=== PATIENT | female | born 1975 | race Caucasian/White ===

== ENCOUNTER 2017-04-24 19:19 | Emergency (ER) | payer MEDICAID ==
[~2017-04-24] VITALS: Ht 167.6 cm; Wt 89.4 kg
[~2017-04-24 19:19] MED LIST: BACTRIM DS 8001 TA1 PO; BUPROPION HYDR150 M1 PO; CIPRO 500MG TA500 MG PO; JUNEL PO; LORTAB 5/500 501 TAB PO; MEDROL 4MG. DOSE4 MG PO; PHENERGAN25 M3 PO; PRISTIQ100 MG PO; PYRIDIUM 200MG200 MG PO; TORADOL10 MG PO
--- OUTSIDE RECORDS SUMMARY | 2017-04-24 19:28 | External Medical Summary Rpt ---
Author Author , ERASMO Boyer RAYADONIS Address Unknown Phone [email or web address] Care Team Providers Care Avid Editor Name Role Phone Sidney Granger MD, Unavailable Unavailable [facility] Unavailable Unavailable PRACTICE L, [facility]ICE [facility] PRACT[facility] L BELINDA TREVINO Unavailable Unavailable MITA LYNN, MITA Unavailable Unavailable LYNN TOSIN TENORIO PA-C Unavailable Unavailable TOSIN COREAC ANMOL GALAN, Unavailable Unavailable BIRGIT ROSS Unavailable Unavailable GANSTMORGAN CASH, GANSTER Unavailable Unavailable CASH DARRELL GILBERT, DARRELL Unavailable Unavailable GILBERT [facility], Unavailable Unavailable [facility] HOGGE BERNARDO, HOGGE BERNARDO Unavailable Unavailable ERROL, ERROL Unavailable Unavailable STRICKLAND, STRICKLAND Unavailable Unavailable STRICKLAND KIRAN, STRICKLAND KIRAN Unavailable Unavailable [facility] Unavailable Unavailable SURGERY, [facility] Unavailable Unavailable MEDICAL, [facility], Unavailable Unavailable [facility] JOSE, JOSE Unavailable Unavailable DENNIS, DENNIS Unavailable Unavailable SOTINGEANU RUSLAN, Unavailable Unavailable SOTINGEANU RUSLAN Purpose Continuity of Care Document - 05-13-2012 through 2016 Problems Code Diagnosis DOS Provider Status [id number] ACUTE 03-13-2017 DALI SINUSITIS PHYSICIAN UNSPECIFIED PRACTICE L [id number] ENCOUNTER 06-25-2016 [facility] INITIAL FAMILY PRESCRIPTIO HEALTH CTR N INJECT CONTRACEPT Z309 ENCOUNTER 06-25-2016 [facility] FOR [facility] CONTRACEPTI HEALTH CTR VE MANAGEMENT UNS O702 THIRD 05-12-2016 [facility] DEGREE FAMILY PERINEAL HEALTH CTR LACERATION DURING DELIVERY O7581 MATERNAL 05-12-2016 [facility] EXHAUSTION FAMILY COMP LABOR HEALTH CTR & DELIVERY O76 ABNORMALITY 05-12-2016 [facility] IN FAMILY HRT RATE HEALTH CTR RHYTHM COMP L & D O9902 ANEMIA 05-12-2016 [facility] COMPLICATIN FAMILY G HEALTH CTR CHILDBIRTH [id number] SUPERVISION 04-23-2016 [facility] ELDERLY FAMILY PRIMIGRAVID HEALTH CTR A THIRD TRIMESTER R319 HEMATURIA 04-23-2016 [facility] UNSPECIFIED FAMILY HEALTH CTR Z3A38 38 WEEKS 04-23-2016 [facility] [place] GESTATION FAMILY OF HEALTH CTR Z36 ENCOUNTER 04-19-2016 [facility] [place] FOR FAMILY HEALTH CTR SCREENING OF MOTHER Z3A37 37 WEEKS 04-19-2016 [facility] [place] GESTATION FAMILY OF HEALTH CTR Z3A36 36 WEEKS 04-11-2016 [facility] [place] GESTATION FAMILY OF [facility]ALTH CTR Z23 ENCOUNTER 03-21-2016 [facility] [place] FOR FAMILY IMMUNIZATIO HEALTH CTR N Z3A33 33 WEEKS 03-21-2016 [facility] [place] GESTATION FAMILY OF HEALTH CTR Z3A31 31 WEEKS 03-07-2016 [facility] [place] GESTATION FAMILY OF HEALTH CTR [id number] ABNORMAL 02-22-2016 [facility] GLUCOSE FAMILY COMPLICATIN HEALTH CTR G Z3A29 29 WEEKS 02-22-2016 [facility] [place] GESTATION FAMILY OF HEALTH CTR N200 CALCULUS OF 02-15-2016 [facility] KIDNEY [facility]ILY [facility] CTR [id number] SUPERVISION 02-15-2016 [facility] ELD[facility]LY [facility]ILY MULTIGRAVID HEALTH CTR A THIRD TRIMESTER Z3182 ENCOUNTER 02-15-2016 [facility] FOR RH FAMILY INCOMPATIBI HEALTH CTR LITY STATUS Z3A28 28 WEEKS 02-15-2016 [facility] GESTATION FAMILY OF HEALTH CTR Z6791 UNSPECIFIED 02-15-2016 [facility] BLOOD TYPE FAMILY RH HEALTH CTR NEGATIVE N201 CALCULUS OF 02-13-2016 [facility]RETER GENERAL SURGERY K87496 SUPERVISION 02-13-2016 [facility] ELDERLY FAMILY MULTIGRAVID HEALTH CTR A SECOND TRI K30565 SUPERVISION 02-08-2016 [facility] ELD[facility]LY [facility]ILY PRIMIGRAVID HEALTH CTR A SECOND TRI [id number] OTHER SPEC 02-08-2016 [facility] [place] [facility] RELATED HEALTH CTR COND 2ND TRIMESTER R309 PAINFUL 02-08-2016 [facility] MICTURITION PHYSICIANS GROUP UNSPECIFIED Z331 02-08-2016 [facility] STATE PHYSICIANS INCIDENTAL GROUP [id number] OTHER SPEC 02-06-2016 [facility] RELATED [facility] CTR COND UNS TRIMESTER O7589 OTHER 02-06-2016 [facility] SPECIFIED REGIONAL COMPLICATIO MEDICAL NS LABOR & DELIVERY Z3A27 27 WEEKS 02-06-[address] [facility] CTR [id number] SPRAIN UNS 01-23-2016 [facility] INITIAL ENCOUNTER Z3A21 21 WEEKS 12-27-[address] [facility] CTR N390 URINARY 12-15-2015 [facility] TRACT PHYSICIANS INFECTION GROUP SITE NOT SPECIFIED 592.9 592.9 08-18-2013 [facility] NOS Allergies, Adverse Reactions, Alerts Type Drug Allergy Adverse Reaction to Substance Substance Reaction Severity Codeine NA-NAUSEA/VOMITING Unknown Medications Na ND Rx Da Fi Fi Am Da Di Ph RX Ph St me C No te ll ll ou ys ag ar # ys at rm s nt no ma ic us Or Da si cy ia de te s n re d AM 00 06 07 20 10 00 WA Ac OX 78 -1 -2 .0 00 L- ti -C 11 4- 1- 00 07 MA ve LA 85 20 20 49 RT V 22 17 17 34 87 0 62 PH 5- AR 12 MA 5 CY MG #5 TA 91 BL ET BU 00 06 07 30 30 00 WA Ac MO 59 -1 -2 .0 00 L- ti OP 13 9- 1- 00 07 MA ve IO 54 20 20 49 RT N 36 17 17 42 HC 0 69 PH L AR SR MA CY 15 0 #5 MG 91 TA BL ET ES 68 03 04 30 30 00 WA Ac CI 64 -0 -1 .0 00 L- ti TA 50 9- 4- 00 07 MA ve LO 52 20 20 46 RT MO 05 17 17 96 AM 4 60 PH AR 20 MA CY MG #5 TA 91 BL ET AZ 59 03 04 6. 5 00 WA Ac IT 76 -0 -1 00 00 L- ti HR 23 1- 4- 0 07 MA ve OM 06 20 20 47 RT YC 00 17 17 37 IN 1 34 PH AR 25 MA 0 CY MG #5 TA 91 BL ET ES 68 02 03 30 30 00 WA Ac CI 64 -0 -1 .0 00 L- ti TA 50 8- 7- 00 07 MA ve LO 52 20 20 46 RT MO 05 17 17 96 AM 4 60 PH AR 20 MA CY MG #5 TA 91 BL ET ES 00 01 02 30 30 00 WA Ac CI 09 -2 -2 .0 00 L- ti TA 35 5- 4- 00 07 MA ve LO 85 20 20 46 RT MO 00 17 17 69 AM 1 14 PH 5 AR MA MG CY TA #5 BL 91 ET SE 68 12 01 30 30 00 WA Ac RT 64 -2 -2 .0 00 L- ti RA 50 0- 0- 00 07 MA ve LI 48 20 20 45 RT NE 87 16 17 96 0 40 PH HC AR L MA 50 CY MG #5 91 TA BL ET TR 59 12 01 2. 1 00 WA Ac IA 76 -1 -2 00 00 L- ti ZO 23 9- 0- 0 04 MA ve LA 71 20 20 52 RT M 80 16 17 87 0. 4 86 PH 25 AR MA MG CY TA #5 BL 91 ET DU 57 12 01 30 30 00 WA Ac LO 23 -0 -0 .0 00 L- ti XE 70 7- 9- 00 07 MA ve TI 01 20 20 38 RT NE 83 16 17 00 0 56 PH HC AR L MA DR CY 30 #4 93 MG CA P KE 00 11 0 No TO 40 -1 RO 93 9- Lo LA 79 20 ng C 60 13 er 60 1 Ac MG ti /2 ve ML AL Immunization Name Date Rout CVX Reac Dose Comm Prov Is Faci e tion ent ider Refu lity Give sed n TDAP 06-2 115 CLAUDIA No LEWI 2-20 E S CO VACC 16 BERNARDO INE FAMI 7 LY YRS/ HEAL > IM TH CTR RHO( 05-1 BRIANNA No LEWI D) 8-20 TER S CO IMMU 16 NE FAMI GLOB LY ULIN HEAL TH LEIF CTR N FULL -DOS E IM Vital Signs 08-18-2013 11:13 Name Value Interpretat Reference Comment ion Range Body 98.2 [degF] Temperature BP 68 mm[Hg] Diastolic BP Systolic 128 mm[Hg] Heart 70 /min Rate/Pulse O2% 99 % Respiratory 18 /min Rate 08-18-2013 09:40 Name Value Interpretat Reference Comment ion Range Body 98.2 [degF] Temperature 08-18-2013 09:07 Name Value Interpretat Reference Comment ion Range BP 92 mm[Hg] Diastolic BP Systolic 138 mm[Hg] Heart 85 /min Rate/Pulse O2% 98 % Respiratory 20 /min Rate Results Labs Lab Lab Date Result Refere Interp Status Commen Order Detail nces retati t Range on Urinalysis macro (dipstick) panel in Urine (04-11-2017 12:37) Appeara CLOUDY CLEAR complet nce of 017 ed Urine 12:37 Bilirub NEGATIV NEG complet in 017 E ed [Presen 12:37 ce] in Urine by Test strip Erythro LARGE NEG complet cytes 017 ed [Presen 12:37 ce] in Urine Color YELLOW YELLOW complet of 017 ed Urine 12:37 Ketones NEGATIV NEG complet 017 E ed [Presen 12:37 ce] in Urine by Automat ed test strip Leukocy LARGE NEG complet te 017 ed esteras 12:37 e [Presen ce] in Urine by Automat ed test strip Nitrite POSITIV NEG Abnorma complet 017 E l ed [Presen 12:37 ce] in Urine by Test strip Urobili 0.2 NEG complet nogen 017 ed [Presen 12:37 ce] in Urine by Test strip Treponema pallidum IgG Ab [Presence] in Serum by Immunoassay (12-14-2014 14:00) Trepone NON-AIDAN complet ma 015 CTIVE ed pallidu 14:00 m IgG Ab [Presen ce] in Serum by Immunoa ssay Treponema pallidum IgG Ab [Presence] in Serum by Immunoassay (12-14-2014 14:00) COLLECT D. complet OR 015 KEITH, ed 14:00 TELEVISION PRODUCTION ASSISTANT ETHNICI WHITE complet TY 015 ed 14:00 PURPOSE ROUTINE complet OF 015 ed EXAM 14:00 SPECIME BLOOD complet N 015 ed SOURCE 14:00 CHART 402-25- complet NUMBER 015 1051 ed 14:00 Trepone Pending complet ma 015 ed pallidu 14:00 m IgG Ab [Presen ce] in Serum by Immunoa ssay CHLAMYDIA AND GONORRHEA TESTING (12-14-2014 10:30) Chlamyd NEGATIV complet ia 015 E ed trachom 10:30 atis rRNA [Presen ce] in Unspeci fied specime n by Probe & target amplifi cation method Neisser NEGATIV complet ia 015 E ed gonorrh 10:30 oeae rRNA [Presen ce] in Unspeci fied specime n by Probe & target amplifi cation method CHLAMYDIA AND GONORRHEA TESTING (12-14-2014 10:30) COLLECT D. complet OR 015 KEITH, ed 10:30 TELEVISION PRODUCTION ASSISTANT ETHNICI WHITE, complet TY 015 NON-HIS ed 10:30 PANIC KIT 12-14- complet EXPIRAT 015 015 ed ION 10:30 DATE SYMPTOM YES complet S 015 ed 10:30 REASON VOLUNTE complet FOR 015 ER/MEDI ed REQUEST 10:30 MOUSTAPHA PROBLEM SPECIME FEMALE complet N 015 ENDOCER ed SOURCE 10:30 VICAL PREGNAN NO complet T 015 ed 10:30 CHART 402-25- complet NUMBER 015 1051 ed 10:30 Chlamyd Pending complet ia 015 ed trachom 10:30 atis rRNA [Presen ce] in Unspeci fied specime n by Probe & target amplifi cation method Neisser Pending complet ia 015 ed gonorrh 10:30 oeae rRNA [Presen ce] in Unspeci fied specime n by Probe & target amplifi cation method B-HCG Ur Ql (08-18-2013 08:35) B-HCG 11-19-2 NEGATIV NEG complet Ur Ql 013 E ed 08:35 URINALYSIS/COMPLETE (08-18-2013 08:35) URINE 11-19-2 YELLOW YELLOW complet COLOR 013 ed 08:35 URINE 11-19-2 SL CLEAR complet APPEARA 013 CLOUDY ed NCE 08:35 URINE 11-19-2 NEGATIV NEG complet GLUCOSE 013 E ed - 08:35 DIPSTIC K URINE 11-19-2 NEGATIV NEG complet BILIRUB 013 E ed IN - 08:35 DIPSTIC K URINE 11-19-2 NEGATIV NEG complet KETONE 013 E mg/dL ed 08:35 URINE 11-19-2 1.025 1.005-1 complet SPECIFI 013 UNK .030 ed C 08:35 GRAVITY URINE 11-19-2 2+ NEG complet BLOOD 013 ed 08:35 URINE 11-19-2 6.0 UNK 5.0-8.5 complet PH 013 ed 08:35 URINE 11-19-2 NEGATIV NEG complet PROTEIN 013 E mg/dL ed - 08:35 DIPSTIC K URINE -19-2 0.2 NEG complet UROBILI 013 E.U./dL ed NOGEN - 08:35 DIPSTIC K URINE 08-18-2 NEGATIV NEG complet NITRATE 013 E ed - 08:35 DIPSTIC K URINE 11-19-2 TRACE NEG complet LEUK 013 ed ESTERAS 08:35 E URINE 11-19-2 5-10 0 complet RBC 013 rbc/hpf ed 08:35 URINE 11-19-2 3-5 O complet WBC 013 wbc/hpf ed 08:35 URINE 11-19-2 3-5 0-5 complet SQUAMOU 013 #/hpf ed S CELLS 08:35 URINE 11-19-2 1+ O complet BACTERI 013 ed A 08:35 Treponema pallidum IgG Ab [Presence] in Serum by Immunoassay (07-08-2012 10:00) Trepone NON-AIDAN complet ma 012 CTIVE ed pallidu 10:00 m IgG Ab [Presen ce] in Serum by Immunoa ssay Treponema pallidum IgG Ab [Presence] in Serum by Immunoassay (07-08-2012 10:00) COLLECT CHAMP complet OR 012 ORD director of media 10:00 ETHNICI WHITE complet TY 012 ed 10:00 PURPOSE DIAGNOS complet OF 012 TIC ed EXAM 10:00 SPECIME BLOOD complet N 012 ed SOURCE 10:00 CHART NA complet NUMBER 012 ed 10:00 Trepone Pending complet ma 012 ed pallidu 10:00 m IgG Ab [Presen ce] in Serum by Immunoa ssay CHLAMYDIA AND GONORRHEA TESTING (07-07-2012 10:00) Chlamyd NEGATIV complet ia 012 E ed trachom 10:00 atis rRNA [Presen ce] in Unspeci fied specime n by Probe & target amplifi cation method Neisser NEGATIV complet ia 012 E ed gonorrh 10:00 oeae rRNA [Presen ce] in Unspeci fied specime n by Probe & target amplifi cation method CHLAMYDIA AND GONORRHEA TESTING (07-07-2012 10:00) COLLECT NA complet OR 012 ed 10:00 ETHNICI WHITE, complet TY 012 NON-HIS ed 10:00 PANIC KIT 10-1 complet EXPIRAT 012 2 ed ION 10:00 DATE SYMPTOM NO complet S 012 ed 10:00 REASON REVISIT complet FOR 012 /ANNUAL ed REQUEST 10:00 FAMILY PLANNIN G VISIT SPECIME URINE complet N 012 ed SOURCE 10:00 PREGNAN NO complet T 012 ed 10:00 CHART NA complet NUMBER 012 ed 10:00 Chlamyd Pending complet ia 012 ed trachom 10:00 atis rRNA [Presen ce] in Unspeci fied specime n by Probe & target amplifi cation method Neisser Pending complet ia 012 ed gonorrh 10:00 oeae rRNA [Presen ce] in Unspeci fied specime n by Probe & target amplifi cation method CHLAMYDIA AND GONORRHEA TESTING (05-13-2012 12:00) Chlamyd NEGATIV complet ia 012 E ed trachom 12:00 atis rRNA [Presen ce] in Unspeci fied specime n by Probe & target amplifi cation method Neisser NEGATIV complet ia 012 E ed gonorrh 12:00 oeae rRNA [Presen ce] in Unspeci fied specime n by Probe & target amplifi cation method CHLAMYDIA AND GONORRHEA TESTING (05-13-2012 12:00) SPECIME URINE complet N 012 ed SOURCE 12:00 REMARKS MOD REP complet 012 TO ed 12:00 CHANGE SOURCE FROM CERVICA L TO URINE PER HARR[place] N CO HD. 05/15/12 B CHLAMYDIA AND GONORRHEA TESTING (05-13-2012 12:00) COLLECT MH complet OR 012 ed 12:00 ETHNICI WHITE, complet TY 012 NON-HIS ed 12:00 PANIC KIT 100-31- complet EXPIRAT 012 2012 ed ION 12:00 DATE SYMPTOM NO complet S 012 ed 12:00 REASON REVISIT complet FOR 012 /ANNUAL ed REQUEST 12:00 FAMILY PLANNIN G VISIT SPECIME FEMALE complet N 012 ENDOCER ed SOURCE 12:00 VICAL PREGNAN NO complet T 012 ed 12:00 CHART N complet NUMBER 012 ed 12:00 Chlamyd Pending complet ia 012 ed trachom 12:00 atis rRNA [Presen ce] in Unspeci fied specime n by Probe & target amplifi cation method Neisser Pending complet ia 012 ed gonorrh 12:00 oeae rRNA [Presen ce] in Unspeci fied specime n by Probe & target amplifi cation method Procedures Procedure DOS Code Location Performer Comment THERAPEUT 82723 [facility]STERS[facility] IC 6 FAMILY [facility] PROPHYLAC HEALTH TIC/DX CTR INJECTION SUBQ/IM URINE 98728 [facility]ERS[facility] 6 FAMILY [facility] TEST HEALTH VISUAL CTR [facility] [address] M[facility] L[facility] [place] DISCHARGE 6 FAMILY DAY HEALTH MANAGEMEN CTR T 30 MIN/< SBSQ 56822 [facility] 6 FAMILY CARE/DAY HEALTH 15 CTR MINUTES SBSQ 08878 [facility] 6 FAMILY CARE/DAY HEALTH 15 CTR MINUTES CULTURE 21621 MARTI RODNEYSTER BCT 6 FAMILY CASH ISOL&[facility] PTV ID CTR ISOLATE EA URINE URNLS DIP 74561 M[facility]I LINDER GANSTER 6 FAMILY CASH STICK/TAB HEALTH LET RGNT CTR NON-AUTO W/O MICRSCP 32597 MARTI KAILASH GANSTER NONSTRESS 6 FAMILY CASH TEST HEALTH CTR URNLS DIP 45819 MARTI AYERSGE BERNARDO 6 FAMILY STICK/TAB HEALTH LET RGNT CTR NON-AUTO W/O MICRSCP 43655 MARTI KAILASH AYERSGE BERNARDO NONSTRESS 6 FAMILY TEST HEALTH CTR URNLS DIP 46930 MARTI KAILASH GANSTER 6 FAMILY CASH STICK/TAB HEALTH LET RGNT CTR NON-AUTO W/O MICRSCP 41948 M[facility] LINDER GANSTER NONSTRESS 6 FAMILY CASH TEST HEALTH CTR IM ADM 07468 M[facility]I LIND[facility] ANDRIAGE BERNARDO PRQ ID 6 FAMILY SUBQ/IM HEALTH NJXS 1 CTR VACCINE TDAP 18823 M[facility]I LINDER SHERWIN BERNARDO VACCINE 7 6 FAMILY YRS/> IM HEALTH CTR URNLS DIP 43173 MARTI KAILASH AYERSGE BERNARDO 6 FAMILY STICK/TAB HEALTH LET RGNT CTR NON-AUTO W/O MICRSCP URNLS DIP 25248 M[facility]I LINDER GANSTER 6 FAMILY CASH STICK/TAB HEALTH LET RGNT CTR NON-AUTO W/O MICRSCP URNLS DIP 83026 MARTI AYERSGE BERNARDO 6 FAMILY STICK/TAB HEALTH LET RGNT CTR NON-AUTO W/O MICRSCP COLLECTIO 47417 MARTI COURTNEY BERNARDO N VENOUS 6 FAMILY BLOOD HEALTH VENIPUNCT CTR URE COLLECTIO 42589 MARTI RODNEYSTER N VENOUS 6 FAMILY CASH BLOOD HEALTH VENIPUNCT CTR URE URNLS DIP 09235 MARTI VELEZLEY 6 FAMILY STICK/TAB HEALTH LET RGNT CTR NON-AUTO W/O MICRSCP RHO(D) 67381 MARTI GENAO IMMUNE 6 FAMILY GLOBULIN HEALTH HUMAN CTR FULL-DOSE IM BLOOD 54485 MARTI GENAO COUNT 6 FAMILY HEMOGLOBI HEALTH N CTR THERAPEUT 33187 MARTI GENAO IC 6 FAMILY PROPHYLAC HEALTH TIC/DX CTR INJECTION SUBQ/IM CYSTO 51431 MARIAH LOPEZWLICO W/INSERT 6 W GENERAL W GENERAL URETERAL SURGERY SURGERY STENT CYSTO 30733 MARIAH NAYANA W/URETERO 6 W GENERAL ADAMA SCOPY SURGERY W/RMVL/MA [place] STONES URNLS DIP 46003 MARTI RODNEYSTER 6 FAMILY CASH STICK/TAB HEALTH LET RGNT CTR NON-AUTO W/O MICRSCP SMR PRIM 26505 [place] MEAWVIE SRC WET 6 W W [facility] NFCT [facility] MEDICAL MEDICAL INITIAL 62982 MARTI STR[facility] OBSERVATI 6 FAMILY ON HEALTH CARE/DAY CTR 30 MINUTES CULTURE 86448 MARIAH MEAWVIE BACTERIAL 6 W W [facility] MEDICAL VE COLONY COUNT URINE URNLS DIP 18428 MARIAH LEMUS 6 W W STICK/TAB REGIONAL REGIONAL LET MEDICAL MEDICAL REAGENT AUTO MICROSCOP Y 28462 MARTI KAILASH [place] NONSTRESS 6 FAMILY TEST HEALTH CTR Encounters Encounter Start End Date Code Location Performer Type Date OFFICE 06051 DALI TREVINO OUTPATIEN 7 7 PHYSICIAN T VISIT PRACTICE 15 L MINUTES OFFICE 41326 [facility] JOSE OUTPATIEN 6 6 N URGENT T VISIT CARE 15 MINUTES OFFICE 01304 MARTI LÓPEZLACH OUTPATIEN 6 6 FAMILY [place] T VISIT HEALTH 25 CTR MINUTES OFFICE 48745 MARTI LINDER GANSTER OUTPATIEN 6 6 FAMILY CASH T VISIT HEALTH 15 CTR MINUTES OFFICE 41348 MARTI COURTNEY BERNARDO OUTPATIEN 6 6 FAMILY T VISIT HEALTH 15 CTR MINUTES OFFICE 10734 MARTI LINDER GANSTER OUTPATIEN 6 6 FAMILY CASH T VISIT HEALTH 15 CTR MINUTES OFFICE 22448 MARTI COURTNEY BERNARDO OUTPATIEN 6 6 FAMILY T VISIT HEALTH 15 CTR MINUTES OFFICE 71827 MARTI LINDER GANSTER OUTPATIEN 6 6 FAMILY T VISIT HEALTH 15 CTR MINUTES OFFICE 28527 MARTI COURTNEY BERNARDO OUTPATIEN 6 6 FAMILY T VISIT HEALTH 15 CTR MINUTES OFFICE 84475 MARTI LINDER GANSTER OUTPATIEN 6 6 FAMILY CASH T VISIT HEALTH 15 CTR MINUTES OFFICE 00648 [facility] TOSIN OUTPATIEN 6 6 PHYSICIAN STONE T NEW 30 S GROUP PA-C ANMOL MINUTES [facility] MARIAH - 6 6 W OUTPATIEN REGIONAL T MEDICAL EMERGENCY 80361 MOUNA SAINI 6 6 PHYSICIAN U RUSLAN [facility] T VISIT MODERATE SEVERITY OFFICE 01864 MARTI STRICKLAND KIRAN OUTPATIEN 6 6 FAMILY T NEW 10 HEALTH MINUTES CTR OFFICE 42436 [facility] OUTPATIEN 6 6 PHYSICIAN LYNN T NEW 30 S GROUP MINUTES Emergency CYNDIE Granger MD (ER) 3 09:06 3 11:13 [facility]
--- OUTSIDE RECORDS SUMMARY | 2017-04-24 19:28 | External Medical Summary Rpt ---
Author Author , ERASMO Boyer RAYADONIS Address Unknown Phone [email or web address] Team Providers Care Nipping Machine Operator Name Role Phone Sidney Granger MD, Unavailable Unavailable [facility] Unavailable Unavailable PRACTICE L, JANICE PHYSICIAN PRACTICE L BELINDA TREVINO Unavailable Unavailable MITA LYNN, MITA Unavailable Unavailable LYNN TOSIN TENORIO PA-C Unavailable Unavailable TOSIN COREAC ANMOL GALAN, Unavailable Unavailable BIRGIT ROSS Unavailable Unavailable GANSTMORGAN CASH, GANSTER Unavailable Unavailable CASH DARRELL GILBERT, DARRELL Unavailable Unavailable GILBERT [facility], Unavailable Unavailable [facility] HOGGE BERNARDO, HOGGE BERNARDO Unavailable Unavailable ERROL, ERROL Unavailable Unavailable STRICKLAND, STRICKLAND Unavailable Unavailable STRICKLAND KIRAN, STRICKLAND KIRAN Unavailable Unavailable [facility] Unavailable Unavailable [facility], [facility] Unavailable Unavailable SURGERY, [facility]GERY [facility] Unavailable Unavailable MEDICAL, [facility], Unavailable Unavailable [facility], [facility], [facility] JOSE, JOSE Unavailable Unavailable DENNIS, DENNIS Unavailable Unavailable SOTINGEANU RUSLAN, Unavailable Unavailable SOTINGEANU RUSLAN Purpose Continuity of Care Document - 05-13-2012 through 2016 Problems Code Diagnosis DOS Provider Status [id number] ACUTE 03-13-2017 DALI SINUSITIS PHYSICIAN UNSPECIFIED PRACTICE L X37180 ENCOUNTER 06-25-2016 [facility] INITIAL FAMILY PRESCRIPTIO HEALTH CTR N INJECT CONTRACEPT Z309 ENCOUNTER 06-25-2016 [facility] FOR [facility] HEALTH CTR VE MANAGEMENT UNS O702 THIRD 05-12-2016 [facility] DEGREE FAMILY PERINEAL HEALTH CTR LACERATION DURING DELIVERY O7581 MATERNAL 05-12-2016 [facility] EXHAUSTION FAMILY COMP LABOR HEALTH CTR & DELIVERY O76 ABNORMALITY 05-12-2016 [facility] [place] IN FAMILY HRT RATE HEALTH CTR RHYTHM COMP L & D O9902 ANEMIA 05-12-2016 [facility] COMPLICATIN FAMILY G HEALTH CTR CHILDBIRTH [id number] SUPERVISION 04-23-2016 [facility] ELDERLY FAMILY PRIMIGRAVID [...] [facility] [place] GESTATION FAMILY OF HEALTH CTR [id number] ABNORMAL 02-22-2016 [facility] GLUCOSE FAMILY COMPLICATIN HEALTH CTR G Z3A29 29 WEEKS 02-22-2016 [facility] [place] GESTATION FAMILY OF HEALTH CTR N200 CALCULUS OF 02-15-2016 [facility] KIDNEY FAMILY HEALTH CTR [id number] SUPERVISION 02-15-2016 [facility] ELDERLY FAMILY MULTIGRAVID HEALTH CTR A THIRD TRIMESTER Z3182 ENCOUNTER 02-15-2016 [facility] [place] FOR RH FAMILY INCOMPATIBI HEALTH CTR LITY STATUS Z3A28 28 WEEKS 02-15-2016 [facility] [place] GESTATION FAMILY OF HEALTH CTR Z6791 UNSPECIFIED 02-15-2016 [facility] [place] BLOOD TYPE FAMILY RH HEALTH CTR NEGATIVE N201 CALCULUS OF 02-13-2016 [facility] URETER GENERAL SURGERY Z55493 SUPERVISION 02-13-2016 [facility] ELDERLY FAMILY MULTIGRAVID HEALTH CTR A SECOND TRI O02199 SUPERVISION 02-08-2016 [facility] ELDERLY FAMILY PRIMIGRAVID HEALTH CTR A SECOND TRI [id number] OTHER SPEC 02-08-2016 [facility] FAMILY RELATED HEALTH CTR COND 2ND TRIMESTER R309 PAINFUL 02-08-2016 [facility] MICTUR[facility] PHYSIC[facility]ANS GROUP UNSPECIFIED Z331 02-08-2016 [facility] STATE PHYSICIANS INCIDENTAL GROUP G97103 OTHER SPEC 02-06-2016 [facility] FAMILY RELATED HEALTH CTR COND UNS TRIMESTER O7589 OTHER 02-06-2016 [facility] SPECIFIED REGIONAL COMPLICATIO MEDICAL NS LABOR & DELIVERY Z3A27 27 WEEKS 02-06-2016 [facility] L[facility] GESTATION [facility] CTR [id number] SPRAIN UNS 01-23-2016 [facility] LIGAMENT PHYSICIANS, LEFT ANKLE PLLC INITIAL ENCOUNTER Z3A21 21 WEEKS 12-27-2015 [facility] GESTATION [facility] CTR N390 URINARY 12-15-2015 [facility] TRACT PHYSICIANS INFECTION GROUP SITE NOT SPECIFIED 592.9 592.9 08-18-2013 [facility] NOS Allergies, Adverse Reactions, Alerts Type Drug [...] 06 07 30 30 00 WA Ac RI 59 -1 -2 .0 00 L- ti [...] ve LO 52 20 20 46 RT RI 05 17 17 96 AM 4 60 [...] ve LO 52 20 20 46 RT RI 05 17 17 96 AM 4 60 PH AR 20 MA CY MG #5 TA 91 BL ET ES 00 01 02 30 30 00 WA Ac CI 09 -2 -2 .0 00 L- ti TA 35 5- 4- 00 07 MA ve LO 85 20 20 46 RT RI 00 17 17 69 AM 1 14 [...] D. complet OR 015 KEITH, ed 14:00 SOCIAL SCIENCE RESEARCH ASSISTANT ETHNICI WHITE complet TY 015 ed [...] D. complet OR 015 KEITH, ed 10:30 SOCIAL SCIENCE RESEARCH ASSISTANT ETHNICI WHITE, complet TY 015 NON-HIS [...] 10:00) COLLECT CHAMP complet OR 012 ORD computed tomography technologist 10:00 ETHNICI WHITE complet TY 012 ed [...] Procedure DOS Code Location Performer Comment THERAPEUT 32771 [facility] MASTERS[facility] IC 6 FAMILY [place] PROPHYLAC HEALTH TIC/DX CTR INJECTION SUBQ/IM URINE 45556 [facility] MASTERS[facility] 6 FAMILY [place] TEST HEALTH VISUAL CTR COLOR [facility] [address]8400 M[facility] LINDER STR[place] DISCHARGE 6 FAMILY DAY HEALTH MANAGEMEN CTR T 30 MIN/< SBSQ 06770 [facility] 6 FAMILY CARE/DAY HEALTH 15 CTR MINUTES SBSQ 43224 M[facility] 6 FAMILY CARE/DAY HEALTH 15 CTR MINUTES CULTURE 99556 MARTI RODNEYSTER BCT 6 FAMILY CASH ISOL&PRSM HEALTH PTV ID CTR ISOLATE EA URINE URNLS DIP 81292 M[facility] LINDER GANSTER 6 FAMILY CASH STICK/TAB HEALTH LET RGNT CTR NON-AUTO W/O MICRSCP 45226 MARTI KAILASH GANSTER NONSTRESS 6 FAMILY CASH TEST HEALTH CTR URNLS DIP 40642 MARTI AYERSGE BERNARDO 6 FAMILY STICK/TAB HEALTH LET RGNT CTR NON-AUTO W/O MICRSCP 78227 M[facility]I KAILASH AYERSGE BERNARDO NONSTRESS 6 FAMILY TEST HEALTH CTR URNLS DIP 24900 MARTI KAILASH GANSTER 6 FAMILY CASH STICK/TAB HEALTH LET RGNT CTR NON-AUTO W/O MICRSCP 35663 M[facility] LINDER GANSTER NONSTRESS 6 FAMILY CASH TEST HEALTH CTR IM ADM 23405 M[facility] LINDER ANDRIAGE BERNARDO PRQ ID 6 FAMILY SUBQ/IM HEALTH NJXS 1 CTR VACCINE TDAP 67345 M[facility]I LINDER SHERWIN BERNARDO VACCINE 7 6 FAMILY YRS/> IM HEALTH CTR URNLS DIP 40763 MARTI KAILASH AYERSGE BERNARDO 6 FAMILY STICK/TAB HEALTH LET RGNT CTR NON-AUTO W/O MICRSCP URNLS DIP 71767 M[facility] LINDER GANSTER 6 FAMILY CASH STICK/TAB HEALTH LET RGNT CTR NON-AUTO W/O MICRSCP URNLS DIP 74564 MARTI AYERSGE BERNARDO 6 FAMILY STICK/TAB HEALTH LET RGNT CTR NON-AUTO W/O MICRSCP COLLECTIO 63431 MARTI COURTNEY BERNARDO N VENOUS 6 FAMILY BLOOD HEALTH VENIPUNCT CTR URE COLLECTIO 08530 MARTI RODNEYSTER N VENOUS 6 FAMILY CASH BLOOD HEALTH VENIPUNCT CTR URE URNLS DIP 65053 MARTI VELEZLEY 6 FAMILY STICK/TAB HEALTH LET RGNT CTR NON-AUTO W/O MICRSCP RHO(D) 03429 MARTI GENAO IMMUNE 6 FAMILY GLOBULIN HEALTH HUMAN CTR FULL-DOSE IM BLOOD 57947 MARTI GENAO COUNT 6 FAMILY HEMOGLOBI HEALTH N CTR THERAPEUT 19871 MARTI GENAO IC 6 FAMILY PROPHYLAC HEALTH TIC/DX CTR INJECTION SUBQ/IM CYSTO 02190 MAR[facility] LOPEZWLICO W/INSERT 6 W GENERAL W GENERAL URETERAL SURGERY SURGERY STENT CYSTO 32318 MARIAH NAYANA W/URETERO 6 W GENERAL ADAMA SCOPY SURGERY W/RMVL/MA NJ STONES URNLS DIP 81664 MARTI RODNEYSTER 6 FAMILY CASH STICK/TAB HEALTH LET RGNT CTR NON-AUTO W/O MICRSCP SMR PRIM 80074 [place] MEAWVIE SRC WET 6 W W [facility] MEDICAL MEDICAL INITIAL 49804 MARTI STRICKLAND OBSERVATI 6 FAMILY ON HEALTH CARE/DAY CTR 30 MINUTES CULTURE 29225 MARIAH MEAWVIE BACTERIAL 6 W W [facility] MEDICAL VE COLONY COUNT URINE URNLS DIP 61192 MARIAH LEMUS 6 W W STICK/TAB REGIONAL REGIONAL LET MEDICAL MEDICAL REAGENT AUTO MICROSCOP Y 83535 MARTI KAILASH [place] NONSTRESS 6 FAMILY TEST HEALTH CTR Encounters Encounter Start End Date Code Location Performer Type Date OFFICE 99433 DALI TREVINO OUTPATIEN 7 7 PHYSICIAN T VISIT PRACTICE 15 L MINUTES OFFICE 30174 [facility] JOSE OUTPATIEN 6 6 N URGENT T VISIT CARE 15 MINUTES OFFICE 89019 MARTI LÓPEZLACH OUTPATIEN 6 6 FAMILY GILBERT T VISIT HEALTH 25 CTR MINUTES OFFICE 28772 [facility] LINDER GANSTER OUTPATIEN 6 6 FAMILY CASH T VISIT HEALTH 15 CTR MINUTES OFFICE 55474 MARTI COURTNEY BERNARDO OUTPATIEN 6 6 FAMILY T VISIT HEALTH 15 CTR MINUTES OFFICE 91178 [facility] LINDER GANSTER OUTPATIEN 6 6 FAMILY CASH T VISIT HEALTH 15 CTR MINUTES OFFICE 87067 MARTI COURTNEY BERNARDO OUTPATIEN 6 6 FAMILY T VISIT HEALTH 15 CTR MINUTES OFFICE 95316 [facility] LINDER GANSTER OUTPATIEN 6 6 FAMILY T VISIT HEALTH 15 CTR MINUTES OFFICE 94650 MARTI COURTNEY BERNARDO OUTPATIEN 6 6 FAMILY T VISIT HEALTH 15 CTR MINUTES OFFICE 89838 M[facility] LINDER GANSTER OUTPATIEN 6 6 FAMILY CASH T VISIT HEALTH 15 CTR MINUTES OFFICE 50522 [facility] TOSIN OUTPATIEN 6 6 PHYSICIAN STONE T NEW 30 S GROUP PA-C ANMOL MINUTES [facility] MARIAH - 6 6 W OUTPATIEN REGIONAL T MEDICAL EMERGENCY 92517 [facility] SAINI 6 6 PHYSICIAN U RUSLAN DEPARTMEN S, PLLC T VISIT MODERATE SEVERITY OFFICE 93657 M[facility]I STRICKLAND KIRAN OUTPATIEN 6 6 FAMILY T NEW 10 HEALTH MINUTES CTR OFFICE 87227 [facility] OUTPATIEN 6 6 PHYSICIAN LYNN T NEW 30 S GROUP MINUTES Emergency CYNDIE Granger MD (ER) 3 09:06 3 11:13 [facility]
--- OUTSIDE RECORDS SUMMARY | 2017-04-24 19:29 | External Medical Summary Rpt ---
Author Author , ERASMO ZIMMERMAN Address Unknown Phone [email or web address] Care Team Providers Care Employment Training Specialist Name Role Phone JANICEON PHYSICIAN Unavailable Unavailable PRACTICE L, JANICEON PHYSICIAN PRACTICE L BELINDA BELINDA Unavailable Unavailable MITA LYNN, MITA Unavailable Unavailable LYNN TOSIN STONE PA-C Unavailable Unavailable ANMOL, TOSIN TENORIO PA-C ANMOL NAYANA ADAMA, Unavailable Unavailable NAYANA ADAMA GANSTER, GANSTER Unavailable Unavailable GANSTER CASH, GANSTER Unavailable Unavailable CASH DARRELL GILBERT, DARRELL Unavailable Unavailable GILBERT [facility], Unavailable Unavailable [facility] HOGGE BERNARDO, HOGGE BERNARDO Unavailable Unavailable ERROL, ERROL Unavailable Unavailable STRICKLAND, STRICKLAND Unavailable Unavailable STRICKLAND KIRAN, STRICKLAND KIRAN Unavailable Unavailable [facility] Unavailable Unavailable [facility], [facility] Unavailable Unavailable SURGERY, [facility] SURGERY [facility] Unavailable Unavailable MEDICAL, [facility]ICAL [facility], Unavailable Unavailable [facility], [facility], [facility] JOSE GARCIA Unavailable Unavailable DENNIS, DENNIS Unavailable Unavailable SOTINGEANU RUSLAN, Unavailable Unavailable SOTINGEANU RUSLAN Purpose Continuity of Care Document - 12-15-2015 through 2016 Problems Code Diagnosis DOS Provider Status J0190 ACUTE 03-13-2017 DALI SINUSITIS PHYSICIAN UNSPECIFIED PRACTICE L [id number] ENCOUNTER 06-25-2016 [facility] INITIAL FAMILY PRESCRIPTIO HEALTH CTR N INJECT CONTRACEPT Z309 ENCOUNTER 06-25-2016 [facility] FOR FAMILY CONTRACEPTI HEALTH CTR VE MANAGEMENT UNS O702 THIRD 05-12-2016 [facility] DEGREE FAMILY PERINEAL HEALTH CTR LACERATION DURING DELIVERY O7581 MATERNAL 05-12-2016 [facility] EXHAUSTION FAMILY COMP LABOR HEALTH CTR & DELIVERY O76 ABNORMALITY 05-12-2016 [facility] IN FAMILY HRT RATE HEALTH CTR RHYTHM COMP L & D O9902 ANEMIA 05-12-2016 [facility] COMPLICATIN FAMILY G HEALTH CTR CHILDBIRTH K26753 SUPERVISION 04-23-2016 [facility] ELDERLY FAMILY PRIMIGRAVID HEALTH CTR A THIRD [...] [facility] GESTATION FAMILY OF HEALTH CTR O67978 ABNORMAL 02-22-2016 [facility] [place] GLUCOSE FAMILY COMPLICATIN HEALTH CTR G Z3A29 29 WEEKS 02-22-2016 [facility] [place] GESTATION FAMILY OF HEALTH CTR N200 CALCULUS OF 02-15-2016 [facility] [place] KIDNEY [facility]ILY HEALTH CTR [id number] SUPERVISION 02-15-2016 [facility] [place] ELDERLY FAMILY MULTIGRAVID HEALTH CTR A THIRD TRIMESTER Z3182 ENCOUNTER 02-15-2016 [facility] [place] FOR RH FAMILY INCOMPATIBI HEALTH CTR LITY STATUS Z3A28 28 WEEKS 02-15-2016 [facility] [place] GESTATION FAMILY OF HEALTH CTR Z6791 UNSPECIFIED 02-15-2016 [facility] BLOOD TYPE FAMILY RH HEALTH CTR NEGATIVE N201 CALCULUS OF 02-13-2016 [facility] URETER GENERAL SURGERY L25867 SUPERVISION 02-13-2016 [facility] [place] ELDERLY FAMILY MULTIGRAVID HEALTH CTR A SECOND TRI O98322 SUPERVISION 02-08-2016 [facility] [place] ELDERLY FAMILY PRIMIGRAVID HEALTH CTR A SECOND TRI Z57774 OTHER SPEC 02-08-2016 [facility] [place] FAMILY RELATED HEALTH CTR COND 2ND TRIMESTER R309 PAINFUL 02-08-[address] [facility] MICTURITION PHYSICIANS GROUP UNSPECIFIED Z331 02-08-[address] [facility] STATE PHYSICIANS INCIDENTAL GROUP E11634 OTHER SPEC 02-06-2016 [facility] [place] FAMILY RELATED HEALTH CTR COND UNS TRIMESTER O7589 OTHER 02-06-2016 [facility] SPECIFIED REGIONAL COMPLICATIO MEDICAL NS LABOR & DELIVERY Z3A27 27 WEEKS 02-06-2016 [facility] [place] GESTATION FAMILY OF HEALTH CTR [id number] SPRAIN UNS 01-23-2016 [facility] LIGAMENT PHYSICIANS, LEFT ANKLE PLLC INITIAL ENCOUNTER Z3A21 21 WEEKS 12-27-2015 [facility] [place] GESTATION FAMILY OF HEALTH CTR N390 URINARY 12-15-[address] [facility] TRACT PHYSICIANS INFECTION GROUP SITE NOT SPECIFIED Medications Na ND Rx Da Fi Fi [...] 06 07 30 30 00 WA Ac VT 59 -1 -2 .0 00 L- ti [...] ve LO 52 20 20 46 RT VT 05 17 17 96 AM 4 60 [...] ve LO 52 20 20 46 RT VT 05 17 17 96 AM 4 60 PH AR 20 MA CY MG #5 TA 91 BL ET ES 00 01 02 30 30 00 WA Ac CI 09 -2 -2 .0 00 L- ti TA 35 5- 4- 00 07 MA ve LO 85 20 20 46 RT VT 00 17 17 69 AM 1 14 [...] CY 30 #4 93 MG CA P Immunization Name Date Rout CVX Reac Dose [...] LEIF CTR N FULL -DOS E IM Procedures Procedure DOS Code Location Performer Comment THERAPEUT 48350 [facility]ST[facility] IC 6 FAMILY [place] PROPHYLAC HEALTH TIC/DX CTR INJECTION SUBQ/IM URINE 26536 [facility] LÓPEZLACH 6 FAMILY [place]IL[place] TEST HEALTH VISUAL CTR COLOR [facility] 65233 [facility] L[facility] [place] DISCHARGE 6 FAMILY DAY HEALTH MANAGEMEN CTR T 30 MIN/< SBSQ 86977 [facility] L[facility] [place] [address] FAMILY CARE/DAY HEALTH 15 CTR MINUTES SBSQ 70198 [facility] 6 FAMILY CARE/DAY HEALTH 15 CTR MINUTES URNLS DIP 54249 [facility] L[facility] GANSTER 6 FAMILY CASH STICK/TAB HEALTH LET RGNT CTR NON-AUTO W/O MICRSCP 00571 [facility] L[facility] GANSTER NONSTRESS 6 FAMILY CASH TEST HEALTH CTR CULTURE 49365 [facility] GENAO BCT 6 FAMILY CASH ISOL&PRSM HEALTH PTV ID CTR ISOLATE EA URINE URNLS DIP 11713 [facility] LINDER HOGGE BERNARDO 6 FAMILY STICK/TAB HEALTH LET RGNT CTR NON-AUTO W/O MICRSCP 15544 [facility] L[facility] BERNARDO NONSTRESS 6 FAMILY TEST HEALTH CTR 91547 [facility] LINDER GANSTER NONSTRESS 6 FAMILY CASH TEST HEALTH CTR URNLS DIP 88210 [facility] CO GANSTER 6 FAMILY CASH STICK/TAB HEALTH LET RGNT CTR NON-AUTO W/O MICRSCP URNLS DIP 34269 [facility] COURTNEY BERNARDO 6 FAMILY STICK/TAB HEALTH LET RGNT CTR NON-AUTO W/O MICRSCP IM ADM 99357 [facility] COURTNEY BERNARDO PRQ ID 6 FAMILY SUBQ/IM HEALTH NJXS 1 CTR VACCINE TDAP 73391 [facility] COURTNEY BERNARDO VACCINE 7 6 FAMILY YRS/> IM HEALTH CTR URNLS DIP 92574 [facility] L[facility] RONELSTER 6 FAMILY CASH STICK/TAB HEALTH LET RGNT CTR NON-AUTO W/O MICRSCP COLLECTIO 95194 [facility] COURTNEY BERNARDO N VENOUS 6 FAMILY BLOOD HEALTH VENIPUNCT CTR URE URNLS DIP 23579 [facility] COURTNEY BERNARDO 6 FAMILY STICK/TAB HEALTH LET RGNT CTR NON-AUTO W/O MICRSCP BLOOD 18793 [facility]I GENAO COUNT 6 FAMILY HEMOGLOBI HEALTH N CTR COLLECTIO 34104 [facility] BRAVOER N VENOUS 6 FAMILY CASH BLOOD HEALTH VENIPUNCT CTR URE THERAPEUT 81108 [facility] GENAO IC 6 FAMILY PROPHYLAC HEALTH TIC/DX CTR INJECTION SUBQ/IM URNLS DIP 81366 M[facility]I NORTON 6 FAMILY STICK/TAB HEALTH LET RGNT CTR NON-AUTO W/O MICRSCP RHO(D) 36738 [facility] GENAO IMMUNE 6 FAMILY GLOBULIN HEALTH HUMAN CTR FULL-DOSE IM CYSTO 63685 [facility] LEMUS W/INSERT 6 W GENERAL W GENERAL URETERAL SURGERY SURGERY STENT CYSTO 46229 [place] NAYANA W/URETERO 6 W GENERAL ADAMA SCOPY SURGERY W/RMVL/MA NJ STONES URNLS DIP 68138 [facility]I RODNEYSTER 6 FAMILY CASH STICK/TAB HEALTH LET RGNT CTR NON-AUTO W/O MICRSCP SMR PRIM 65603 [facility] LEMUS SRC WET 6 W W [facility] NFCT AGT MEDICAL MEDICAL CULTURE 39369 MARAIH LEMUS BACTERIAL 6 W W [facility] QUANTTATI MEDICAL MEDICAL VE COLONY COUNT URINE URNLS DIP 46567 [place] MEADOWVIE 6 W W STICK/TAB [facility]AL [facility] LET MEDICAL MEDICAL REAGENT AUTO MICROSCOP Y INITIAL 55880 [facility] STRICKLAND OBSERVATI 6 FAMILY ON HEALTH CARE/DAY CTR 30 MINUTES 15529 [facility] STRICKLAND NONSTRESS 6 FAMILY TEST HEALTH CTR Encounters Encounter Start End Date Code Location Performer Type Date OFFICE 16973 TYESHAMIKAELRAE BELINDA OUTPATIEN 7 7 PHYSICIAN T VISIT PRACTICE 15 L MINUTES OFFICE 63790 [facility] JOSE OUTPATIEN 6 6 N URGENT T VISIT CARE 15 MINUTES OFFICE 21519 [facility] DARRELL OUTPATIEN 6 6 FAMILY GILBERT T VISIT HEALTH 25 CTR MINUTES OFFICE 79157 [facility] LIND[facility] GANSTER OUTPATIEN 6 6 FAMILY CASH T VISIT HEALTH 15 CTR MINUTES OFFICE 43900 [facility]I AYERSGE BERNARDO OUTPATIEN 6 6 FAMILY T VISIT HEALTH 15 CTR MINUTES OFFICE 36536 [facility] GANSTER OUTPATIEN 6 6 FAMILY CASH T VISIT HEALTH 15 CTR MINUTES OFFICE 03973 [facility] COURTNEY BERNARDO OUTPATIEN 6 6 FAMILY T VISIT HEALTH 15 CTR MINUTES OFFICE 39262 [facility] LINDER GANSTER OUTPATIEN 6 6 FAMILY T VISIT HEALTH 15 CTR MINUTES OFFICE 32621 [facility] AYERSGE BERNARDO OUTPATIEN 6 6 FAMILY T VISIT HEALTH 15 CTR MINUTES OFFICE [address] [facility] TOSIN OUTPATIEN 6 6 PHYSICIAN STONE T NEW 30 S GROUP PA-C ANMOL MINUTES OFFICE 16043 [facility] [place] GANSTER OUTPATIEN 6 6 FAMILY CASH T VISIT HEALTH 15 CTR MINUTES HOSPITAL MARIAH - 6 6 W OUTPATIEN REGIONAL T MEDICAL EMERGENCY 88846 [facility] SOTINGEAN 6 6 PHYSICIAN U RUSLAN VILLATORO S, PLLC T VISIT MODERATE SEVERITY OFFICE 93467 M[facility]I BECK OUTPATIEN 6 6 FAMILY T NEW 10 HEALTH MINUTES CTR OFFICE [address] [facility] MITA FLORESEN 6 6 PHYSICIAN LYNN T NEW 30 S GROUP MINUTES
--- OUTSIDE RECORDS SUMMARY | 2017-04-24 19:29 | External Medical Summary Rpt ---
Author Author , ERASMO ZIMMERMAN Address Unknown Phone [email or web address] Care Team Providers Care Gum Sprayer Name Role Phone JANICEON PHYSICIAN Unavailable Unavailable PRACTICE L, JANICEON PHYSICIAN PRACTICE L BELINDA BELINDA Unavailable Unavailable MITA LYNN, MITA Unavailable Unavailable LYNN TOSIN STONE PA-C Unavailable Unavailable ANMOL, TOSIN TENORIO PA-C ANMOL NAYANA ADAMA, Unavailable Unavailable NAYANA ADAMA GANSTER, GANSTER Unavailable Unavailable GANSTER CASH, GANSTER Unavailable Unavailable CASH DARRELL GILBERT, DARRELL Unavailable Unavailable GILBERT [facility], Unavailable Unavailable [facility] HOGGE BERNARDO, HOGGE BERNARDO Unavailable Unavailable ERROL, ERROL Unavailable Unavailable STRICKLAND, STRICKLAND Unavailable Unavailable STRICKLAND KIRAN, STRICKLAND KIRAN Unavailable Unavailable [facility] Un[facility]available [facility], [facility] Unavailable Unavailable SURGERY, [facility] Unavailable Unavailable MEDICAL, [facility], Unavailable Unavailable [facility], [facility] JOSE GARCIA Unavailable Unavailable DENNIS, DENNIS Unavailable Unavailable SOTINGEANU RUSLAN, Unavailable Unavailable SOTINGEANU RUSLAN Purpose Continuity of Care Document - 12-15-2015 through 2016 Problems Code Diagnosis DOS Provider Status [id number] ACUTE 03-13-2017 DALI SINUSITIS PHYSICIAN UNSPECIFIED PRACTICE L [id number] ENCOUNTER 06-25-2016 [facility] INITIAL FAMILY PRESCRIPTIO [...] [facility] COMPLICATIN FAM[facility] CHILDBIRTH [id number] SUPERVISION 04-23-2016 [facility] ELDERLY FAMILY PRIMIGRAVID [...] [facility] [place] GESTATION [facility] OF [facility] [id number] ABNORMAL 02-22-2016 [facility] GLUCOSE [facility] COMPLICATIN [facility] CTR G Z3A29 29 WEEKS 02-22-2016 [facility] [place] [facility] N200 CALCULUS OF 02-15-2016 [facility]IDNEY [facility] [id number] SUPERVISION 02-15-2016 [facility] [place] ELDERLY [facility]ILY MULTIGRAVID HEALTH CTR A THIRD TRIMESTER Z3182 ENCOUNTER 02-15-2016 [facility] [place] FOR RH FAMILY INCOMPATIBI HEALTH CTR LITY STATUS Z3A28 28 WEEKS 02-15-2016 [facility] [place] GESTATION [facility] OF [facility] CTR Z6791 UNSPECIFIED 02-15-2016 [facility] [place] BLOOD TYPE FAMILY RH HEALTH CTR NEGATIVE N201 CALCULUS OF 02-13-2016 [facility]TER GENERAL SURGERY [id number] SUPERVISION 02-13-2016 [facility] [place] ELDERLY FAMILY MULTIGRAVID HEALTH CTR A SECOND TRI [id number] SUPERVISION 02-08-2016 [facility] [place] [facility]LD[facility]LY [facility] PRIMIGRAVID HEALTH CTR A SECOND TRI [id number] OTHER SPEC 02-08-2016 [facility] [place] [facility] RELATED [facility] COND 2ND TRIMESTER R309 PAINFUL 02-08-2016 [facility]CT[facility] UNSPECIFIED Z331 02-08-2016 [facility] STATE PHYSICIANS INCIDENTAL GROUP [id number] OTHER SPEC 02-06-2016 [facility] [place] [facility] COND UNS TRIMESTER O7589 OTHER 02-06-2016 [facility] SPECIFIED REGIONAL COMPLICATIO MEDICAL NS LABOR & DELIVERY Z3A27 27 WEEKS 02-06-2016 [facility] [place] [facility]ATION [facility] [id number] SPRAIN UNS 01-23-2016 [facility], LEFT ANKLE PLLC INITIAL ENCOUNTER Z3A21 21 WEEKS 12-27-2015 [facility] [place] [facility] N390 URINARY 12-15-2015 [facility] TRACT PHYSICIANS INFECTION GROUP SITE NOT [...] 06 07 30 30 00 WA Ac TX 59 -1 -2 .0 00 L- ti [...] ve LO 52 20 20 46 RT TX 05 17 17 96 AM 4 60 [...] ve LO 52 20 20 46 RT TX 05 17 17 96 AM 4 60 PH AR 20 MA CY MG #5 TA 91 BL ET ES 00 01 02 30 30 00 WA Ac CI 09 -2 -2 .0 00 L- ti TA 35 5- 4- 00 07 MA ve LO 85 20 20 46 RT TX 00 17 17 69 AM 1 14 [...] Procedure DOS Code Location Performer Comment THERAPEUT 67074 M[facility] MASTERSCH IC 6 FAMILY [facility] PROPHYLAC HEALTH TIC/DX CTR INJECTION SUBQ/IM URINE 69212 M[facility]I LÓPEZLACH 6 FAMILY [place] TEST HEALTH VISUAL CTR COLOR [facility] [address] MARTI LINDER STRICKLAND DISCHARGE 6 FAMILY DAY HEALTH MANAGEMEN CTR T 30 MIN/< SBSQ 80330 MART[facility] LINDER [place] [address] FAMILY CARE/DAY HEALTH 15 CTR MINUTES SBSQ 71941 MARTI LINDER [facility] 6 FAMILY CARE/DAY HEALTH 15 CTR MINUTES URNLS DIP 27882 M[facility] LINDER GANSTER 6 FAMILY CASH STICK/TAB HEALTH LET RGNT CTR NON-AUTO W/O MICRSCP 19046 M[facility]I LINDER GANSTER NONSTRESS 6 FAMILY CASH TEST HEALTH CTR CULTURE 01719 MARTI GENAO BCT 6 FAMILY CASH ISOL&[facility] PTV ID CTR ISOLATE EA URINE URNLS DIP 87657 MARTI LINDER HOGGE BERNARDO 6 FAMILY STICK/TAB HEALTH LET RGNT CTR NON-AUTO W/O MICRSCP 13170 [facility] [place]ERNARD[facility] NONSTRESS 6 FAMILY TEST HEALTH CTR 59569 MARTI LINDER GANSTER NONSTRESS 6 FAMILY CASH TEST HEALTH CTR URNLS DIP 81276 M[facility] [place] GANSTER 6 FAMILY CASH STICK/TAB HEALTH LET RGNT CTR NON-AUTO W/O MICRSCP URNLS DIP 91793 MARTI COURTNEY BERNARDO 6 FAMILY STICK/TAB HEALTH LET RGNT CTR NON-AUTO W/O MICRSCP IM ADM 74264 M[facility]I COURTNEY BERNARDO PRQ ID 6 FAMILY SUBQ/IM HEALTH NJXS 1 CTR VACCINE TDAP 27297 MARTI COURTNEY BERNARDO VACCINE 7 6 FAMILY YRS/> IM HEALTH CTR URNLS DIP 34714 MARTI LINDER RONELSTER 6 FAMILY CASH STICK/TAB HEALTH LET RGNT CTR NON-AUTO W/O MICRSCP COLLECTIO 37117 MARTI COURTNEY BERNARDO N VENOUS 6 FAMILY BLOOD HEALTH VENIPUNCT CTR URE URNLS DIP 21376 MARTI COURTNEY BERNARDO 6 FAMILY STICK/TAB HEALTH LET RGNT CTR NON-AUTO W/O MICRSCP BLOOD 51674 MARTI GENAO COUNT 6 FAMILY HEMOGLOBI HEALTH N CTR COLLECTIO 71283 MARTI BRAVOER N VENOUS 6 FAMILY CASH BLOOD HEALTH VENIPUNCT CTR URE THERAPEUT 18075 MARTI GENAO IC 6 FAMILY PROPHYLAC HEALTH TIC/DX CTR INJECTION SUBQ/IM URNLS DIP 79023 MARTI NORTON 6 FAMILY STICK/TAB HEALTH LET RGNT CTR NON-AUTO W/O MICRSCP RHO(D) 20494 MARTI GENAO IMMUNE 6 FAMILY GLOBULIN HEALTH HUMAN CTR FULL-DOSE IM CYSTO 61214 MARIAH LEMUS W/INSERT 6 W GENERAL W GENERAL URETERAL SURGERY SURGERY STENT CYSTO 64410 [place] NAYANA W/URETERO 6 W GENERAL ADAMA SCOPY SURGERY W/RMVL/MA [place] STONES URNLS DIP 56944 MARTI RODNEYSTER 6 FAMILY CASH STICK/TAB HEALTH LET RGNT CTR NON-AUTO W/O MICRSCP SMR PRIM 04876 MARIAH LEMUS SRC WET 6 W W [facility] AGT MEDICAL MEDICAL CULTURE 61810 MARIAH LEMUS BACTERIAL 6 W W [facility] MEDICAL MEDICAL VE COLONY COUNT URINE URNLS DIP 33391 [place] MEADOWVIE 6 W W STICK/TAB REGIONAL [facility] LET MEDICAL MEDICAL REAGENT AUTO MICROSCOP Y INITIAL 26444 MARTI STRICKLAND OBSERVATI 6 FAMILY ON HEALTH CARE/DAY CTR 30 MINUTES 42563 MARTI STRICKLAND NONSTRESS 6 FAMILY TEST HEALTH CTR Encounters Encounter Start End Date Code Location Performer Type Date OFFICE 82454 TYESHAMIKAELRAE BELINDA OUTPATIEN 7 7 PHYSICIAN T VISIT PRACTICE 15 L MINUTES OFFICE 16186 [facility] JOSE OUTPATIEN 6 6 N URGENT T VISIT CARE 15 MINUTES OFFICE 29886 [facility] LINDER DARRELL OUTPATIEN 6 6 FAMILY [place] T VISIT HEALTH 25 CTR MINUTES OFFICE 88657 M[facility]I LINDER GANSTER OUTPATIEN 6 6 FAMILY CASH T VISIT HEALTH 15 CTR MINUTES OFFICE 95142 MARTI AYERSGE BERNARDO OUTPATIEN 6 6 FAMILY T VISIT HEALTH 15 CTR MINUTES OFFICE 43312 M[facility] LINDER GANSTER OUTPATIEN 6 6 FAMILY CASH T VISIT HEALTH 15 CTR MINUTES OFFICE 14000 MARTI COURTNEY BERNARDO OUTPATIEN 6 6 FAMILY T VISIT HEALTH 15 CTR MINUTES OFFICE 01768 M[facility] LINDER GANSTER OUTPATIEN 6 6 FAMILY T VISIT HEALTH 15 CTR MINUTES OFFICE 83160 M[facility]I AYERSGE BERNARDO OUTPATIEN 6 6 FAMILY T VISIT HEALTH 15 CTR MINUTES OFFICE 46268 [facility] TOSIN OUTPATIEN 6 6 PHYSICIAN STONE T NEW 30 S GROUP PA-C ANMOL MINUTES OFFICE 90765 [facility] [place] GANSTER OUTPATIEN 6 6 FAMILY CASH T VISIT HEALTH 15 CTR MINUTES HOSPITAL MARIAH - 6 6 W OUTPATIEN REGIONAL T MEDICAL EMERGENCY 62569 MOUNA SOTINGEAN 6 6 PHYSICIAN U RUSLAN VILLATOR[facility] S, [facility] T VISIT MODERATE SEVERITY OFFICE 96581 MARTI BECK OUTPATIEN 6 6 FAMILY T NEW 10 HEALTH MINUTES CTR OFFICE 40738 [facility] MITA FLORESEN 6 6 PHYSICIAN LYNN T NEW 30 S GROUP MINUTES
--- OUTSIDE RECORDS SUMMARY | 2017-04-24 19:30 | External Medical Summary Rpt ---
Author Author [employer] Uvaldo, [employer] Organization [employer] Address Unknown Phone Unavailable Results Comprehensive metabolic 2000 panel in Serum or Plasma Observa Value Referen Units Interpr Notes Date tion ce etation Range Albumin/G 1.1 - 1.8 No Low No Apr 11 lobulin informati informati 2016 1:20 [Mass on in on in PM ratio] in source source Serum or data data Plasma Albumin 3.4 - 5.0 gm/dL Normal No Apr 11 [Mass/vol informati 2016 1:20 ume] in on in PM Serum or source Plasma data Alkaline 46 - 116 U/L Normal No Apr 11 phosphata informati 2016 1:20 se on in PM [Enzymati source c data activity/ volume] in Serum or Plasma Bilirubin 0.2 - 1.0 mg/dL Normal No Apr 11 .total informati 2016 1:20 [Mass/vol on in PM ume] in source Serum or data Plasma Urea 7 - 18 mg/dL Normal No Apr 11 nitrogen informati 2016 1:20 [Mass/vol on in PM ume] in source Serum or data Plasma Calcium 8.5 - mg/dL Normal No Apr 11 [Mass/vol 10.1 informati 2016 1:20 ume] in on in PM Serum or source Plasma data Chloride 98 - 107 mmoL/L Normal No Apr 11 [Moles/vo informati 2016 1:20 lume] in on in PM Serum or source Plasma data Carbon 21.0 - mmoL/L Normal No Apr 11 dioxide, 32.0 informati 2017 1:20 total on in PM [Moles/vo source lume] in data Serum or Plasma Creatinin 0.55 - mg/dL Normal No Apr 11 e 1.02 informati 2017 1:20 [Mass/vol on in PM ume] in source Serum or data Plasma Creatinin 50 - 200 ML/MIN Normal No Apr 11 e renal informati 2017 1:20 clearance on in PM source predicted data by Cockcroft -Gault formula Estimated 59- ML/MIN No REFERENCE Apr 11 informati RANGE: 2017 1:20 glomerula on in >60 PM r source ML/MIN/1. filtratio data 73 SQUARE n rate METERSIf (GF this patient is -A merican, then multiply theresult by 1.210. Globulin 1.3 - 3.2 gm/dL High No Apr 11 [Mass/vol informati 2016 1:20 ume] in on in PM Serum source data Glucose 74 - 106 mg/dL Normal No Apr 11 [Mass/vol informati 2016 1:20 ume] in on in PM Serum or source Plasma data Potassium 3.5 - 5.1 mmoL/L Normal No Apr 112016 1:20 [Moles/vo on in PM lume] in source Serum or data Plasma Sodium 136 - 145 mmoL/L Normal No Apr 11 [Moles/vo ati 2016 1:20 lume] in on in PM Serum or source Plasma data Aspartate 15 - 37 U/L Low No Apr 112016 1:20 aminotran on in PM sferase source [Enzymati data c activity/ volume] in Serum or Plasma Alanine 12 - 78 U/L Normal No Apr 11 aminotran 2016 1:20 sferase on in PM [Enzymati source c data activity/ volume] in Serum or Plasma Protein 6.4 - 8.2 gm/dL Normal No Apr 11 [Mass/vol informati 2016 1:20 ume] in on in PM Serum or source Plasma data CBC W Auto Differential panel in Blood Observa Value Referen Units Interpr Notes Date tion ce etation Range Basophils 0 - 0.2 K/MM3 Normal No Apr 112016 1:20 [#/volume on in PM ] in source Blood by data Automated count Basophils 0.1 - 2.0 % Normal No Apr 11 informati 2016 1:20 leukocyte on in PM s in source Blood by data Automated count Eosinophi 0.0 - 0.4 K/mm3 High No Apr 11 ls informati 2016 1:20 [#/volume on in PM ] in source Blood by data Automated count Eosinophi 0.1 - % Normal No Apr 11 ls/100 12.0 informati 2016 1:20 leukocyte on in PM s in source Blood by data Automated count Granulocy 1.8 - 7.8 K/mm3 High No Apr 11 saurabh informati 2016 1:20 [#/volume on in PM ] in source Blood by data Automated count Granulocy 37.0 - % Normal No Apr 11 saurabh/100 80.0 informati 2016 1:20 leukocyte on in PM s in source Blood by data Automated count Hematocri 37.0 - % Normal No Apr 11 t [Volume 47.0 2016 1:20 on in PM Fraction] source of Blood data Hemoglobi 12.2 - g/dL Normal No Apr 11 n 16.2 informati 2016 1:20 [Mass/vol on in PM ume] in source Blood data Lymphocyt 0.7 - 4.5 K/mm3 Normal No Apr 11 es informati 2016 1:20 [#/volume on in PM ] in source Unspecifi data ed specimen by Automated count Lymphocyt 10 - 50.0 % Normal No Apr 11 es 2016 1:20 [#/volume on in PM ] in source Unspecifi data ed specimen by Automated count Erythrocy 27 - 31.2 pg Low No Apr 11 te mean 2016 1:20 corpuscul on in PM ar source hemoglobi data n [Entitic mass] Erythrocy 31.8 - g/dl Low No Apr 11 te mean 35.4 2016 1:20 corpuscul on in PM ar source hemoglobi data n concentra tion [Mass/vol ume] by Automated count Erythrocy 82.2 - fl Normal No Apr 11 te mean 97.8 2016 1:20 corpuscul on in PM ar volume source [Entitic data volume] by Automated count Monocytes 0.1 - 1.0 K/mm3 Normal No Apr 112016 1:20 [#/volume on in PM ] in source Blood by data Automated count Monocytes 1.7 - 9.3 % Normal No Apr 11 informati 2016 1:20 leukocyte on in PM s in source Blood by data Automated count Platelet 7.4 - fl Low No Apr 11 mean 10.4 informati 2016 1:20 volume on in PM [Entitic source volume] data in Blood by Automated count Platelets 142 - 424 K/mm3 Normal No Apr 112016 1:20 [#/volume on in PM ] in source Blood data Erythrocy 4.2 - 5.4 M/mm3 Normal No Apr 11 saurabh ati 2016 1:20 [#/volume on in PM ] in source Amniotic data fluid Erythrocy 11.5 - % Normal No Apr 11 te 17.5 informati 2016 1:20 distribut on in PM ion width source [Entitic data volume] by Automated count Leukocyte 4.8 - K/MM3 High No Apr 11 s 10.8 informati 2017 1:20 [#/volume on in PM ] in source Blood data Urinalysis macro (dipstick) panel in Urine Observa Value Referen Units Interpr Notes Date tion ce etation Range Appeara CLOUDY CLEAR No No No Apr 11 nce of informa informa informa 2017 Urine tion in tion in tion in 12:37 source source source PM data data data Bilirub NEGATIV NEG No No No Apr 11 in E informa informa informa 2016 [Presen tion in tion in tion in 12:37 ce] in source source source PM Urine data data data by Test strip Erythro LARGE NEG No No No Apr 11 cytes informa informa informa 2016 [Presen tion in tion in tion in 12:37 ce] in source source source PM Urine data data data Color YELLOW YELLOW No No No Apr 11 of informa informa informa 2016 Urine tion in tion in tion in 12:37 source source source PM data data data Glucose NEG No No No Apr 11 [Mass/vol informati informati informati 2017 ume] in on in on in on in 12:37 PM Urine by source source source Test data data data strip Ketones NEGATIV NEG mg/dL No No Apr 11 E informa informa 2016 [Presen tion in tion in 12:37 ce] in source source PM Urine data data by Automat ed test strip pH of 5.0 - 8.5 No Normal No Apr 11 Urine informati informati 2017 on in on in 12:37 PM source source data data Protein NEG mg/dL No No Apr 11 [Mass/vol informati informati 2017 ume] in on in on in 12:37 PM Urine by source source Automated data data test strip Specific 1.005 - No Normal No Apr 11 gravity 1.030 informati informati 2016 of Urine on in on in 12:37 PM source source data data Leukocy LARGE NEG No No No Apr 11 te informa informa informa 2017 esteras tion in tion in tion in 12:37 e source source source PM [Presen data data data ce] in Urine by Automat ed test strip Nitrite POSITIV NEG No Abnorma No Apr 11 E informa l informa 2016 [Presen tion in tion in 12:37 ce] in source source PM Urine data data by Test strip Urobili 0.2 NEG E.U./dL No No Apr 11 nogen informa informa 2016 [Presen tion in tion in 12:37 ce] in source source PM Urine data data by Test strip Choriogonadotropin.beta subunit [Units] in 24 hour Urine Observa Value Referen Units Interpr Notes Date tion ce etation Range Choriogon NEG No No No Apr 11 adotropin informati informati informati 2016 .beta on in on in on in 12:30 PM subunit source source source [Units] data data data in 24 hour Urine Treponema pallidum IgG Ab [Presence] in Serum by Immunoassay Observa Value Referen Units Interpr Notes Date tion ce etation Range COLLECT D. No No No No Dec 14 OR KEITH, informa informa informa informa 2015 REHAB TECH tion in tion in tion in tion in 2:00 PM source source source source data data data data ETHNICI WHITE No No No No Dec 14 TY informa informa informa informa 2015 tion in tion in tion in tion in 2:00 PM source source source source data data data data PURPOSE ROUTINE No No No No Dec 14 OF informa informa informa informa 2015 EXAM tion in tion in tion in tion in 2:00 PM source source source source data data data data SPECIME BLOOD No No No No Dec 14 N informa informa informa informa 2015 SOURCE tion in tion in tion in tion in 2:00 PM source source source source data data data data CHART 402-25- No No No No Dec 14 NUMBER [id number] informa informa informa informa 2015 tion in tion in tion in tion in 2:00 PM source source source source data data data data Trepone NON-AIDAN No No No METHOD Dec [address] informa informa informa OF 2015 pallidu tion in tion in tion in ANALYSI 2:00 PM m IgG source source source S: Ab data data data EIANORM [Presen AL ce] in RANGE: Serum NON-AIDAN by CTIVE\. Immunoa br\This ssay report contain s patient informa tion [place] [facility] [place] Portabi lity and Account ability Act. Treponema pallidum IgG Ab [Presence] in Serum by Immunoassay Observa Value Referen Units Interpr Notes Date tion ce etation Range COLLECT D. No No No No Dec 14 OR KEITH, informa informa informa informa 2015 REHAB TECH tion in tion in tion in tion in 2:00 PM source source source source data data data data ETHNICI WHITE No No No No Dec 14 TY informa informa informa informa 2015 tion in tion in tion in tion in 2:00 PM source source source source data data data data PURPOSE ROUTINE No No No No Dec 14 OF informa informa informa informa 2015 EXAM tion in tion in tion in tion in 2:00 PM source source source source data data data data SPECIME BLOOD No No No No Dec 14 N informa informa informa informa 2015 SOURCE tion in tion in tion in tion in 2:00 PM source source source source data data data data CHART 402-25- No No No No Dec 14 NUMBER [id number] informa informa informa informa 2015 tion in tion in tion in tion in 2:00 PM source source source source data data data data Trepone Pending No No No \.br\Th Dec 14 ma informa informa informa is 2015 pallidu tion in tion in tion in report 2:00 PM m IgG source source source contain Ab data data data s [Presen patient ce] in Serum informa by tion Immunoa that [facility] Ins[facility] ce Portabi lity and Account ability Act. CHLAMYDIA AND GONORRHEA TESTING Observa Value Referen Units Interpr Notes Date tion ce etation Range COLLECT D. No No No No Dec 14 OR KEITH, informa informa informa informa 2015 REHAB TECH tion in tion in tion in tion in 10:30 source source source source AM data data data data ETHNICI WHITE, No No No No Dec 14 TY NON-HIS informa informa informa informa 2015 PANIC tion in tion in tion in tion in 10:30 source source source source AM data data data data KIT No No No No Dec 14 EXPIRAT 015 informa informa informa informa 2015 ION tion in tion in tion in tion in 10:30 DATE source source source source AM data data data data SYMPTOM YES No No No No Dec 14 S informa informa informa informa 2015 tion in tion in tion in tion in 10:30 source source source source AM data data data data REASON VOLUNTE No No No No Dec 14 FOR ER/MEDI informa informa informa informa 2015 REQUEST MOUSTAPHA tion in tion in tion in tion in 10:30 PROBLEM source source source source AM data data data data SPECIME FEMALE No No No No Dec 14 N ENDOCER informa informa informa informa 2015 SOURCE VICAL tion in tion in tion in tion in 10:30 source source source source AM data data data data PREGNAN NO No No No No Dec 14 T informa informa informa informa 2015 tion in tion in tion in tion in 10:30 source source source source AM data data data data CHART 402-25- No No No No Dec 14 NUMBER [id number] informa informa informa informa 2015 tion in tion in tion in tion in 10:30 source source source source AM data data data data Chlamyd NEGATIV No No No NEGATIV Dec 14 ia E informa informa informa E 2015 trachom tion in tion in tion in RESULT= 10:30 atis source source source WITHIN AM rRNA data data data NORMAL [Presen ce] in LIMITSP Unspeci OSITIVE fied specime RESULT= n by Probe & ABNORMA target LEQUIVO MOUSTAPHA amplifi RESULT= cation method INDETER MINATEU NSATISF ACTORY RESULT= INVALID Neisser NEGATIV No No No NEGATIV Dec 14 ia E informa informa informa E 2015 gonorrh tion in tion in tion in RESULT= 10:30 oeae source source source WITHIN AM rRNA data data data NORMAL [Presen ce] in LIMITSP Unspeci OSITIVE fied specime RESULT= n by Probe & ABNORMA target LEQUIVO MOUSTAPHA amplifi RESULT= cation method INDETER MINATEU NSATISF ACTORY RESULT= INVALID THE APTIMA COMBO 2 ASSAY IS NOT INTENDE D FOR THE EVALUAT ION OF SUSPECT EDSEXUA L ABUSE OR FOR OTHER MEDICO- LEGAL INDICAT IONS. FOR THOSE PATIENT S FORWHOM A FALSE POSITIV E RESULT MAY HAVE ADVERSE PSYCHO- SOCIAL IMPACT, THE CDCRECO MMENDS RETESTI NG.\.br \This report contain s patient informa tion that must be protect ed in accorda nce with the Health Insuran ce Portabi lity and Account ability Act. CHLAMYDIA AND GONORRHEA TESTING Observa Value Referen Units Interpr Notes Date tion ce etation Range COLLECT D. No No No No Dec 14 OR KEITH, informa informa informa informa 2015 REHAB TECH tion in tion in tion in tion in 10:30 source source source source AM data data data data ETHNICI WHITE, No No No No Dec 14 TY NON-HIS informa informa informa informa 2015 PANIC tion in tion in tion in tion in 10:30 source source source source AM data data data data KIT No No No No Dec 14 EXPIRAT 015 informa informa informa informa 2015 ION tion in tion in tion in tion in 10:30 DATE source source source source AM data data data data SYMPTOM YES No No No No Dec 14 S informa informa informa informa 2015 tion in tion in tion in tion in 10:30 source source source source AM data data data data REASON VOLUNTE No No No No Dec 14 FOR ER/MEDI informa informa informa informa 2015 REQUEST MOUSTAPHA tion in tion in tion in tion in 10:30 PROBLEM source source source source AM data data data data SPECIME FEMALE No No No No Dec 14 N ENDOCER informa informa informa informa 2015 SOURCE VICAL tion in tion in tion in tion in 10:30 source source source source AM data data data data PREGNAN NO No No No No Dec 14 T informa informa informa informa 2015 tion in tion in tion in tion in 10:30 source source source source AM data data data data CHART 402-25- No No No No Dec 14 NUMBER [id number] informa informa informa informa 2015 tion in tion in tion in tion in 10:30 source source source source AM data data data data Chlamyd Pending No No No No Dec 14 ia informa informa informa informa 2015 trachom tion in tion in tion in tion in 10:30 atis source source source source AM rRNA data data data data [Presen ce] in Unspeci fied specime n by Probe & target amplifi cation method Neisser Pending No No No \.br\Th Dec 14 ia informa informa informa is 2015 gonorrh tion in tion in tion in report 10:30 oeae source source source contain AM rRNA data data data s [Presen patient ce] in Unspeci informa fied tion specime that n by must be Probe & target protect ed in amplifi accorda cation nce method with the Health Insuran ce Portabi lity and Account ability Act. Treponema pallidum IgG Ab [Presence] in Serum by Immunoassay Observa Value Referen Units Interpr Notes Date tion ce etation Range COLLECT CHAMP No No No No Jul 08 OR ORD RN informa informa informa informa 2012 tion in tion in tion in tion in 10:00 source source source source AM data data data data ETHNICI WHITE No No No No Jul 08 TY informa informa informa informa 2012 tion in tion in tion in tion in 10:00 source source source source AM data data data data PURPOSE DIAGNOS No No No No Jul 08 OF TIC informa informa informa informa 2012 EXAM tion in tion in tion in tion in 10:00 source source source source AM data data data data SPECIME BLOOD No No No No Jul 08 N informa informa informa informa 2012 SOURCE tion in tion in tion in tion in 10:00 source source source source AM data data data data CHART NA No No No No Jul 08 NUMBER informa informa informa informa 2012 tion in tion in tion in tion in 10:00 source source source source AM data data data data Trepone NON-AIDAN No No No METHOD Jul [address] informa informa informa OF 2012 pallidu tion in tion in tion in ANALYSI 10:00 m IgG source source source S: AM Ab data data data EIANORM [Presen AL ce] in RANGE: Serum NON-AIDAN by CTIVE\. Immunoa br\This ssay report contain s patient informa tion that must be protect ed in [facility] with the Health Insuran ce Portabi lity and Account ability Act. Treponema pallidum IgG Ab [Presence] in Serum by Immunoassay Observa Value Referen Units Interpr Notes Date tion ce etation Range COLLECT D.BRADF No No No No Jul 08 OR ORD RN informa informa informa informa 2012 tion in tion in tion in tion in 10:00 source source source source AM data data data data ETHNICI WHITE No No No No Jul 08 TY informa informa informa informa 2012 tion in tion in tion in tion in 10:00 source source source source AM data data data data PURPOSE DIAGNOS No No No No Jul 08 OF TIC informa informa informa informa 2012 EXAM tion in tion in tion in tion in 10:00 source source source source AM data data data data SPECIME BLOOD No No No No Jul 08 N informa informa informa informa 2012 SOURCE tion in tion in tion in tion in 10:00 source source source source AM data data data data CHART NA No No No No Jul 08 NUMBER informa informa informa informa 2012 tion in tion in tion in tion in 10:00 source source source source AM data data data data Trepone Pending No No No \.br\Jul 08 ma informa informa informa is 2012 pallidu tion in tion in tion in report 10:00 m IgG source source source contain AM Ab data data data s [Presen patient ce] in Serum informa by tion Immunoa that ssay must be protect ed in [facility] with the Health Insuran Portabi lity and Account ability Act. CHLAMYDIA AND GONORRHEA TESTING Observa Value Referen Units Interpr Notes Date tion ce etation Range COLLECT NA No No No No Jul 07 OR informa informa informa informa 2012 tion in tion in tion in tion in 10:00 source source source source AM data data data data ETHNICI WHITE, No No No No Jul 07 TY NON-HIS informa informa informa informa 2012 PANIC tion in tion in tion in tion in 10:00 source source source source AM data data data data KIT 10-31-1 No No No No Jul 07 EXPIRAT 2 informa informa informa informa 2012 ION tion in tion in tion in tion in 10:00 DATE source source source source AM data data data data SYMPTOM NO No No No No Jul 07 S informa informa informa informa 2012 tion in tion in tion in tion in 10:00 source source source source AM data data data data REASON REVISIT No No No No Jul 07 FOR /ANNUAL informa informa informa informa 2012 REQUEST FAMILY tion in tion in tion in tion in 10:00 source source source source AM PLANNIN data data data data G VISIT SPECIME URINE No No No No Jul 07 N informa informa informa informa 2012 SOURCE tion in tion in tion in tion in 10:00 source source source source AM data data data data PREGNAN NO No No No No Jul 07 T informa informa informa informa 2012 tion in tion in tion in tion in 10:00 source source source source AM data data data data CHART NA No No No No Jul 07 NUMBER informa informa informa informa 2012 tion in tion in tion in tion in 10:00 source source source source AM data data data data Chlamyd NEGATIV No No No NEGATIV Jul 07 ia E informa informa informa E 2012 trachom tion in tion in tion in RESULT= 10:00 atis source source source WITHIN AM rRNA data data data NORMAL [Presen ce] in LIMITSP Unspeci OSITIVE fied specime RESULT= n by Probe & ABNORMA target LEQUIVO MOUSTAPHA amplifi RESULT= cation method INDETER MINATEU NSATISF ACTORY RESULT= INVALID Neisser NEGATIV No No No NEGATIV Jul 07 ia E informa informa informa E 2012 gonorrh tion in tion in tion in RESULT= 10:00 oeae source source source WITHIN AM rRNA data data data NORMAL [Presen ce] in LIMITSP Unspeci OSITIVE fied specime RESULT= n by Probe & ABNORMA target LEQUIVO MOUSTAPHA amplifi RESULT= cation method INDETER MINATEU NSATISF ACTORY RESULT= INVALID THE APTIMA COMBO 2 ASSAY IS NOT INTENDE D FOR THE EVALUAT ION OF SUSPECT EDSEXUA L ABUSE OR FOR OTHER MEDICO- LEGAL INDICAT IONS. FOR THOSE PATIENT S FORWHOM A FALSE POSITIV E RESULT MAY HAVE ADVERSE PSYCHO- SOCIAL IMPACT, THE CDCRECO MMENDS RETESTI NG.\.br \This report contain s patient informa tion that must be protect ed in accorda nce with the Health Insuran ce Portabi lity and Account ability Act. CHLAMYDIA AND GONORRHEA TESTING Observa Value Referen Units Interpr Notes Date tion ce etation Range COLLECT NA No No No No Jul 07 OR informa informa informa informa 2012 tion in tion in tion in tion in 10:00 source source source source AM data data data data ETHNICI WHITE, No No No No Jul 07 TY NON-HIS informa informa informa informa 2012 PANIC tion in tion in tion in tion in 10:00 source source source source AM data data data data KIT -- No No No No Jul 07 EXPIRAT 2 informa informa informa informa 2012 ION tion in tion in tion in tion in 10:00 DATE source source source source AM data data data data SYMPTOM NO No No No No Jul 07 S informa informa informa informa 2012 tion in tion in tion in tion in 10:00 source source source source AM data data data data REASON REVISIT No No No No Jul 07 FOR /ANNUAL informa informa informa informa 2012 REQUEST FAMILY tion in tion in tion in tion in 10:00 source source source source AM PLANNIN data data data data G VISIT SPECIME URINE No No No No Jul 07 N informa informa informa informa 2012 SOURCE tion in tion in tion in tion in 10:00 source source source source AM data data data data PREGNAN NO No No No No Jul 07 T informa informa informa informa 2012 tion in tion in tion in tion in 10:00 source source source source AM data data data data CHART NA No No No No Jul 07 NUMBER informa informa informa informa 2012 tion in tion in tion in tion in 10:00 source source source source AM data data data data Chlamyd Pending No No No No Jul 07 ia informa informa informa informa 2012 trachom tion in tion in tion in tion in 10:00 atis source source source source AM rRNA data data data data [Presen ce] in Unspeci fied specime n by Probe & target amplifi cation method Neisser Pending No No No \.br\Jul 07 ia informa informa informa is 2012 gonorrh tion in tion in tion in report 10:00 oeae source source source contain AM rRNA data data data s [Presen patient ce] in Unspeci informa fied tion specime that n by must be Probe & target protect ed in amplifi accorda cation nce method with the Health Insuran ce Portabi lity and Account ability Act. CHLAMYDIA AND GONORRHEA TESTING Observa Value Referen Units Interpr Notes Date tion ce etation Range COLLECT MH No No No No May 13 OR informa informa informa informa 2012 tion in tion in tion in tion in 12:00 source source source source PM data data data data ETHNICI WHITE, No No No No May 13 TY NON-HIS informa informa informa informa 2012 PANIC tion in tion in tion in tion in 12:00 source source source source PM data data data data KIT 100-31- No No No No May 13 EXPIRAT 2011 informa informa informa informa 2012 ION tion in tion in tion in tion in 12:00 DATE source source source source PM data data data data SYMPTOM NO No No No No May 13 S informa informa informa informa 2012 tion in tion in tion in tion in 12:00 source source source source PM data data data data REASON REVISIT No No No No May 13 FOR /ANNUAL informa informa informa informa 2012 REQUEST FAMILY tion in tion in tion in tion in 12:00 source source source source PM PLANNIN data data data data G VISIT SPECIME URINE No No No No May 13 N informa informa informa informa 2012 SOURCE tion in tion in tion in tion in 12:00 source source source source PM data data data data PREGNAN NO No No No No May 13 T informa informa informa informa 2012 tion in tion in tion in tion in 12:00 source source source source PM data data data data CHART N No No No No May 13 NUMBER informa informa informa informa 2012 tion in tion in tion in tion in 12:00 source source source source PM data data data data Chlamyd NEGATIV No No No NEGATIV May 13 ia E informa informa informa E 2012 trachom tion in tion in tion in RESULT= 12:00 atis source source source WITHIN PM rRNA data data data NORMAL [Presen ce] in LIMITSP Unspeci OSITIVE fied specime RESULT= n by Probe & ABNORMA target LEQUIVO MOUSTAPHA amplifi RESULT= cation method INDETER MINATEU NSATISF ACTORY RESULT= INVALID Neisser NEGATIV No No No NEGATIV May 13 ia E informa informa informa E 2012 gonorrh tion in tion in tion in RESULT= 12:00 oeae source source source WITHIN PM rRNA data data data NORMAL [Presen ce] in LIMITSP Unspeci OSITIVE fied specime RESULT= n by Probe & ABNORMA target LEQUIVO MOUSTAPHA amplifi RESULT= cation method INDETER MINATEU NSATISF ACTORY RESULT= INVALID THE APTIMA COMBO 2 ASSAY IS NOT INTENDE D FOR THE EVALUAT ION OF SUSPECT EDSEXUA L ABUSE OR FOR OTHER MEDICO- LEGAL INDICAT IONS. FOR THOSE PATIENT S FORWHOM A FALSE POSITIV E RESULT MAY HAVE ADVERSE PSYCHO- SOCIAL IMPACT, [facility] MM[facility] RETESTI NG. REMARKS MOD REP No No No \.br\May 13 TO informa informa informa is 2011 CHANGE tion in tion in tion in report 12:00 SOURCE source source source contain PM FROM data data data s CERVICA patient L TO URINE informa PER tion HARRISO that N CO must be HD. 05/15/12 protect B ed in accorda nce with the Health Insuran ce Portabi lity and Account ability Act. CHLAMYDIA AND GONORRHEA TESTING Observa Value Referen Units Interpr Notes Date tion ce etation Range COLLECT MH No No No No May 13 OR informa informa informa informa 2012 tion in tion in tion in tion in 12:00 source source source source PM data data data data ETHNICI WHITE, No No No No May 13 TY NON-HIS informa informa informa informa 2012 PANIC tion in tion in tion in tion in 12:00 source source source source PM data data data data KIT 100-31- No No No No May 13 EXPIRAT 2011 informa informa informa informa 2012 ION tion in tion in tion in tion in 12:00 DATE source source source source PM data data data data SYMPTOM NO No No No No May 13 S informa informa informa informa 2012 tion in tion in tion in tion in 12:00 source source source source PM data data data data REASON REVISIT No No No No May 13 FOR /ANNUAL informa informa informa informa 2012 REQUEST FAMILY tion in tion in tion in tion in 12:00 source source source source PM PLANNIN data data data data G VISIT SPECIME URINE No No No No May 13 N informa informa informa informa 2012 SOURCE tion in tion in tion in tion in 12:00 source source source source PM data data data data PREGNAN NO No No No No May 13 T informa informa informa informa 2012 tion in tion in tion in tion in 12:00 source source source source PM data data data data CHART N No No No No May 13 NUMBER informa informa informa informa 2012 tion in tion in tion in tion in 12:00 source source source source PM data data data data Chlamyd Pending No No No No May 13 ia informa informa informa informa 2012 trachom tion in tion in tion in tion in 12:00 atis source source source source PM rRNA data data data data [Presen ce] in Unspeci fied specime n by Probe & target amplifi cation method Neisser Pending No No No No May 13 ia informa informa informa informa 2012 gonorrh tion in tion in tion in tion in 12:00 oeae source source source source PM rRNA data data data data [Presen ce] in Unspeci fied specime n by Probe & target amplifi cation method REMARKS MOD REP No No No \.br\May 13 TO informa informa informa is 2012 CHANGE tion in tion in tion in report 12:00 SOURCE source source source contain PM FROM data data data s CERVICA patient L TO URINE informa PER tion HARRISO that N CO must be HD. 05/15/12 protect B ed in accorda nce with the Health Insuran ce Portabi lity and Account ability Act. CHLAMYDIA AND GONORRHEA TESTING Observa Value Referen Units Interpr Notes Date tion ce etation Range COLLECT MH No No No No May 13 OR informa informa informa informa 2012 tion in tion in tion in tion in 12:00 source source source source PM data data data data ETHNICI WHITE, No No No No May 13 TY NON-HIS informa informa informa informa 2012 PANIC tion in tion in tion in tion in 12:00 source source source source PM data data data data KIT 100-31- No No No No May 13 EXPIRAT 2012 informa informa informa informa 2012 ION tion in tion in tion in tion in 12:00 DATE source source source source PM data data data data SYMPTOM NO No No No No May 13 S informa informa informa informa 2012 tion in tion in tion in tion in 12:00 source source source source PM data data data data REASON REVISIT No No No No May 13 FOR /ANNUAL informa informa informa informa 2012 REQUEST FAMILY tion in tion in tion in tion in 12:00 source source source source PM PLANNIN data data data data G VISIT SPECIME URINE No No No No May 13 N informa informa informa informa 2012 SOURCE tion in tion in tion in tion in 12:00 source source source source PM data data data data PREGNAN NO No No No No May 13 T informa informa informa informa 2012 tion in tion in tion in tion in 12:00 source source source source PM data data data data CHART N No No No No May 13 NUMBER informa informa informa informa 2012 tion in tion in tion in tion in 12:00 source source source source PM data data data data Chlamyd Pending No No No No May 13 ia informa informa informa informa 2012 trachom tion in tion in tion in tion in 12:00 atis source source source source PM rRNA data data data data [Presen ce] in Unspeci fied specime n by Probe & target amplifi cation method Neisser Pending No No No No May 13 ia informa informa informa informa 2012 gonorrh tion in tion in tion in tion in 12:00 oeae source source source source PM rRNA data data data data [Presen ce] in Unspeci fied specime n by Probe & target amplifi cation method REMARKS MOD REP No No No \.br\May 13 TO informa informa informa is 2012 CHANGE tion in tion in tion in report 12:00 SOURCE source source source contain PM FROM data data data s CERVICA patient L TO URINE informa PER tion HARRISO that N CO must be HD. 05/15/12 protect B ed in [facility] with the Health Ins[employer] ce Portabi lity and Account ability Act. CHLAMYDIA AND GONORRHEA TESTING Observa Value Referen Units Interpr Notes Date tion ce etation Range COLLECT MH No No No No May 13 OR informa informa informa informa 2012 tion in tion in tion in tion in 12:00 source source source source PM data data data data ETHNICI WHITE, No No No No May 13 TY NON-HIS informa informa informa informa 2012 PANIC tion in tion in tion in tion in 12:00 source source source source PM data data data data KIT 100-31- No No No No May 13 EXPIRAT 2011 informa informa informa informa 2012 ION tion in tion in tion in tion in 12:00 DATE source source source source PM data data data data SYMPTOM NO No No No No May 13 S informa informa informa informa 2012 tion in tion in tion in tion in 12:00 source source source source PM data data data data REASON REVISIT No No No No May 13 FOR /ANNUAL informa informa informa informa 2012 REQUEST FAMILY tion in tion in tion in tion in 12:00 source source source source PM PLANNIN data data data data G VISIT SPECIME FEMALE No No No No May 13 N ENDOCER informa informa informa informa 2012 SOURCE VICAL tion in tion in tion in tion in 12:00 source source source source PM data data data data PREGNAN NO No No No No May 13 T informa informa informa informa 2012 tion in tion in tion in tion in 12:00 source source source source PM data data data data CHART N No No No No May 13 NUMBER informa informa informa informa 2012 tion in tion in tion in tion in 12:00 source source source source PM data data data data Chlamyd Pending No No No No May 13 ia informa informa informa informa 2012 trachom tion in tion in tion in tion in 12:00 atis source source source source PM rRNA data data data data [Presen ce] in Unspeci fied specime n by Probe & target amplifi cation method Neisser Pending No No No \.br\May 13 ia informa informa informa is 2012 gonorrh tion in tion in tion in report 12:00 oeae source source source contain PM rRNA data data data s [Presen patient ce] in Unspeci informa fied tion specime that n by must be Probe & target protect ed in amplifi accorda cation nce method with the Health Ins[employer] ce Portabi lity and Account ability Act.
--- OUTSIDE RECORDS SUMMARY | 2017-04-24 19:30 | External Medical Summary Rpt ---
Demographics Preferred Language Cuban Marital Status Unknown Druze Affiliation Unknown Race Unknown Ethnic Group Unknown Author Author , ERASMO ZIMMERMAN Address Unknown Phone Immunization Unable to retrieve immunization data due to connection failure with Immunization Registry. Please try again later.
--- OUTSIDE RECORDS SUMMARY | 2017-04-24 19:30 | External Medical Summary Rpt ---
Author Author ERASMO Uvaldo, [employer] Organization [employer] Address [...] OR KEITH, informa informa informa informa 2015 D[employer] BASS PLAYER tion in tion in tion in tion [...] tion that must be protect ed in [place] [facility] with the Health Ins[employer] ce Portabi lity and Account ability Act. Treponema pallidum IgG Ab [Presence] in Serum by Immunoassay Observa Value Referen Units Interpr Notes Date tion ce etation Range COLLECT D. No No No No Dec 14 OR KEITH, informa informa informa informa 2015 DOUBLE BASS PLAYER tion in tion in tion in tion [...] that ssay must be protect ed in [facility] with the Health Ins[facility] ce Portabi lity and Account ability Act. CHLAMYDIA AND GONORRHEA TESTING Observa Value Referen Units Interpr Notes Date tion ce etation Range COLLECT D. No No No No Dec 14 OR KEITH, informa informa informa informa 2015 DOUBLE BASS PLAYER tion in tion in tion in tion [...] OR KEITH, informa informa informa informa 2015 DOUBLE BASS PLAYER tion in tion in tion in tion [...] tion that must be protect ed in [facility] with the Health Ins[facility] ce Portabi [...] that ssay must be protect ed in [facility] with the Health Ins[facility] Portabi lity [...] MAY HAVE ADVERSE PSYCHO- SOCIAL IMPACT, [facility] RET[facility]I NG. REMARKS MOD REP No [...] be HD. 05/15/[address] [facility] with the Health Ins[employer] ce Portabi [...]
--- OUTSIDE RECORDS SUMMARY | 2017-04-24 19:30 | External Medical Summary Rpt ---
Demographics Preferred Language Tunisian Marital Status Unknown Orthodox Affiliation Unknown Race Unknown Ethnic Group Unknown Author Author , ERASMO ZIMMERMAN Address Unknown Phone Immunization Unable to retrieve immunization data due to connection failure with Immunization Registry. Please try again later.
--- NOTE | 2017-04-24 19:43 | Urgent Treatment Center Report ---
History of Present Issue Date/Time Seen by Provider 04/24/171941 Visit Reason Pt arrived:Walked Presenting Problem:PT STATES SHE FEELS FEVERISH, SINUS CONGESTION AND PRESSURE. PT ALSO HAS WRIST PAIN X 1 MONTH, DENIES INJURY. Location if Accident: Onset of symptoms date/time:/ or onset unknown for:MEDICAL HX UNKNOWN Have you (or family members/close friends) recently traveled outside the [place]? N If Yes, where/when: Have you had exposure to infectious disease within the past month? TB? Other? Specify: c/o rhinorrhea, nasal congestion, sneezing, watery eyes x weeks -months. Fluctuates. Hasn't taken or tried anything. Denies fever. Also c/o right wrist pain x 1 month, worse with picking up daughter, hasn't taken anything. Requesting wrist splint. Denies known injury. No N/T or limited ROM. Source patient Exam Limitations no limitations ALLERGIES Coded Allergies: codeine (01/23/16) Home Medications Active Scripts Ciprofloxacin HCl (Cipro 500MG TAB) 500 MG PO BID #20 TAB Prov: 04/11/17 History Medical History General CAD? No Angina: No NH: No Hypertension? No Hyperlipidemia? No CHF? No DVT? No PE? No COPD? No Asthma? No Anemia? No GERD? No Gastric ulcers? No GI Bleed? No Hernia? No Thyroid Problems? No Hypothyroidism? No CVA? No Seizures? No Diabetes? No Renal Insuffiency? No UTI? Yes Stones? Yes BPH? No GB Disease: No Nephritic Syndrome? No Asplenia? No Hepatitis? No Sickle Cell Disease? No Arthritis? No Migraines? No Cataracts? No Glaucoma? No MRSA? No HIV? No TB? No Anxiety? No Depression? No Cancer? 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 denies: ear discharge. Respiratory cough (occasionally), denies shortness of breath Cardiovascular denies no symptoms reported Gastrointestinal denies no symptoms reported Musculoskeletal see HPI Skin denies change in color, denies lumps, denies rash Psychiatric/Neurological see HPI Physical Exam Vital Signs Vital Signs Date Time Temp Pulse Resp B/P Pulse O2 O2 Flow FiO2 Ox Delivery Rate 04/24 2006 98.5 104 20 136/86 97 04/24 1934 98.5 104 20 136/86 97 General Appearance normal appearance, no apparent distress, active, playful ( playing w/ 11mo. old daughter) Eye Exam - bilateral eye normal exam Ear, Nose, Throat normal ENT inspection (x/ clear PND & boggy turbinate) Neck non-tender, supple Respiratory Status No: respiratory distress, productive cough, non productive cough. Lung Sounds anterior: lungs clear. posterior: lungs clear. bilateral: normal breath sounds , lungs clear. 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 No Results/Orders Orders Procedure Date/time Status STABILIZE JOINT 04/24 2003 Active Departure Departure Time of Disposition 1956 Disposition DC Home or Self Care(routine) Clinical Impression Primary Impression: De Quervain's tenosynovitis, right Secondary Impressions: Allergic rhinitis Qualifiers: Chronicity: acute Allergic rhinitis trigger: unspecified Allergic rhinitis seasonality: unspecified seasonality Qualified Code: J30.9 - Allergic rhinitis, unspecified Condition STABLE Referrals KELTON TREVINO (Family) Follow up IMMEDIATELY for new or worsening symptoms OR no noticeable improvement over the next 72 hours. 911 for difficulty breathing or swallowing.* Patient Instructions DI for Allergic Rhinitis, DI for De Quervain's Tenosynovitis Additional Instructions * No sign of bacterial infection. Likely allergic given your history. Start back an antihistamine of your choice and flonase. Consider FU w/ reimbursement liaison if symptoms persist and nothing over the counter is helping. * Monitor Temp.This shouldn't cause fevers. If this occurs, FU immediately. * Encourage fluids, water, gatorade, powerade, pedialyte if /toddler/child * warm salt water gargles * warm fluids * sore throat lozenges * sleep elevated * humidifier/vaporizer * flonase 2 sprays each nostril daily but may take 2-3 days to notice improvement with it. WRIST * wrist splint as much as possible. Helps immobilize the wrist/affected tendon so that it can improve. Without it and with continued use of wrist, improvement is unlikely. * naproxen every 12 hours to help w/ pain and inflammation in the tendon. * No additional anti-inflammatories like motrin, aleve, advil with the above amount of ibuprofen. You CAN still take Tylenol every 4 hours as needed if you need something more for pain. Discharge Counseling Counseled pt/family regarding diagnosis, medications/RX, home care, follow up needs Prescriptions Current Visit Scripts NAPROXEN (NAPROSYN 500MG TAB) 500 MG PO BID #14 TAB at 1031
[2017-04-24] MEDS ORDERED: NAPROSYN 500MG500 MG PO (20:02)
[2017-04-24 20:06] VITALS: BP 136/86
== END 2017-04-24 20:08 | disposition home or self-care (01) ==
LOC: UTC 19:19
DX: M65.4 Radial styloid tenosynovitis [de Quervain] (principal); J30.9 Allergic rhinitis, unspecified